=== PATIENT | female | born 1970 | race Caucasian/White ===

== ENCOUNTER → 2017-01-30 | Outpatient (CLI) | payer OTHER ==
--- NOTE | 2017-01-30 21:08 | MR ---
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 TECHNIQUE: Multiplanar, multisequence images of the brain and brainstem were acquired before and aft er administration of 20 mL IV MultiHance. Diffusion weighted imaging is performed. FINDINGS: As compared to 02/05/2014, there is new right frontal craniotomy flap with underlying large 7.4 x 3.6 cm right frontal lobe resection cavity. Resection changes extend down to the frontal horn of the righ t lateral ventricle. There is volume loss with the right lateral ventricle showing minimal asymmetric dilatation. There is surrounding T2 bright white matter change extending within the remaining right frontal lobe, extending across the genu of the corpus callosum to the medial left frontal white matter, the anteri or right subinsular region, and small amount within the anterior superior right temporal lobe. Exten jian to the left, extension posteriorly, and inferiorly into the insular and temporal lobes is new fr om 02/05/2014. These areas do not show enhancement. There is no nodular masslike enhancement along the resection cav ity. Some curvilinear enhancement at the frontal horn of the right lateral ventricle at the margin of the resection cavity, axial postcontrast image 45 and 53 likely represents some displaced choroid pl exus. Dural venous sinuses are patent. Diffusion-weighted imaging shows no suspicious restricted diffusion. Multiple 3 mm of rightward cerebellar tonsillar herniation suggestive of benign cerebellar tonsillar ectopia. Otherwise, midline structures demonstrate normal morphology. No evidence for midline, extra-axial fluid collection, or hydrocephalus. Major intracranial flow voids are intact. Mild mucosal thickening ethmoid air cells. Globes are intact. IMPRESSION: 1. Interval right frontal craniotomy flap with underlying 7.4 cm right frontal lobe resection cavity. There are a couple small curvilinear areas of enhancement along the resection margin adjacent to the frontal horn which likely represent displaced choroid plexus. This enhancement can be reassessed at short interval follow-up. No suspicious nodular or masslike enhancement. 2. Increasing T2 hyperintensity now extending across the corpus callosum to the medial left frontal l obe, farther posteriorly and inferiorly within the remainder of the right frontal lobe, and into the anterior right temporal and insular lobes. Both posttreatment change and infiltrating intermediate gr ludin glioma are in the differential. Correlate with any recent outside priors and as to the utility of MR spectroscopy to further evaluate.
== END | disposition home or self-care (01) ==
LOC: RADMRIMAIN 17:12
PROVIDERS: ATTEND Radiology Radiation Oncology
DX: C71.9 Malignant neoplasm of brain, unspecified (principal)
CPT/HCPCS: 70553; A9577

== ENCOUNTER 2017-05-12 10:19 | Emergency (ER) | payer OTHER ==
[2017-05-12 10:42] VITALS: RESP 17
[2017-05-12] MEDS ORDERED: LORazepam 2 MG/ML SYRINGE IV STA (10:46)
[2017-05-12 11:03] LABS: Basophils # (A) 0.1 k/uL (0-0.2); Basophils % (A) 1 %; CH 31.3; Eosinophils # (A) 0.5 k/uL (0-0.7); Eosinophils % (A) 11 %; HCT 40.3 % (34.0-46.0); HDW 2.81; HGB 13.6 gm/dL (11.4-16.0); Luc # (Auto) 0.13; Luc % (Auto) 3; Lymphocytes # (A) 0.9 k/uL (1.0-4.8); Lymphocytes % (A) 19 %; MCH 31.3 pg (25.0-35.0); MCHC 33.7 g/dL (31.0-37.0); MCV 92.7 fL (80.0-100.0); Mean Platelet Volume 7.3; Monocytes # (A) 0.3 k/uL (0-1.0); Monocytes % (A) 5 %; Neutrophils # (A) 2.8 k/uL (1.3-7.7); Neutrophils % (A) 61 %; RBC 4.35 m/uL (3.80-5.40); RDW 13.4 % (11.5-15.5); WBC 4.5 k/uL (3.8-10.6); WBC (Perox) 4.27
[2017-05-12 11:14] LABS: ALT 42 U/L (9-52); AST 23 U/L (14-36); Alkaline Phosphatase 112 U/L (38-126); Anion Gap 7 mmol/L; Blood Urea Nitrogen 8 mg/dL (7-17); Calcium 8.5 mg/dL (8.4-10.2); Carbon Dioxide 26 mmol/L (22-30); Chloride 106 mmol/L (98-107); Glucose 94 mg/dL (74-99); Non-African American GFR(MDRD) >60 (>60 ml/min/1.73 sqM); Potassium 4.1 mmol/L (3.5-5.1); Sodium 139 mmol/L (137-145); Total Bilirubin 0.3 mg/dL (0.2-1.3); Total Protein 6.3 g/dL (6.3-8.2)
--- NOTE | 2017-05-12 11:30 | CT ---
EXAMINATION TYPE: CT brain wo con DATE OF EXAM: 05/12/2017 COMPARISON: NONE HISTORY: Vertigo, history of brain surgery for CA CT DLP: 2006.[address] of the brain was performed. Right frontal craniotomy with underlying post surgical encephalomalacia. No significant interval jones ge. No evidence for midline shift. Extra-axial dilatation right frontal horn. There is no evidence for intracranial hemorrhage or sulcal effacement. No mass effects are seen. If symptoms persist consider MRI as clinically warranted. IMPRESSION: 1. No acute intracranial process is seen at this time. Stable postoperative changes right frontal re gion.
--- NOTE | 2017-05-12 12:20 | ED ---
General Adult HPI - General Chief complaint: Extremity Problem,Nontraumatic Stated complaint: Hand Swelling Time Seen by Provider: 05/12/17 10:21 Source: patient, EMS, RN notes reviewed, old records reviewed Mode of arrival: EMS Limitations: physical limitation - History of Present Illness Initial comments: Chief complaint history of present illness this is a 47-year-old female with a past history of the brain cancer several years ago in remission. She's had vertigo for long period of time today was worse than days gone by. She is to ready taking meclizine. No associated nausea vomiting and increases with turning her head left and right. She does state that she's been having mild - Related Data Home Medications Medication Instructions Recorded Confirmed HYDROcodone/APAP 7.5-325MG [[place] 1 each PO Q6HR PRN 05/25/14 07/20/16 7.5] Levothyroxine Sodium [Synthroid] 100 mcg PO DAILY 05/25/14 07/20/16 Meclizine [Antivert] 25 mg PO DAILY 05/17/15 07/20/16 Ondansetron [Zofran] 4 mg PO Q8HR PRN 05/17/15 07/20/16 Allergies Allergy/AdvReac Type Severity Reaction Status Date / Time No Known Allergies Allergy Verified 05/25/14 17:47 Review of Systems ROS Statement: Those systems with pertinent positive or pertinent negative responses have been documented in the HPI. Review of systems no headache or visual acuity changes she does get dizzy when she turns her head quickly left the right posterior close her eyes and stay still the dizziness goes away. No chest pain shortness breath GI/ problems. All systems are reviewed. Past medical problems significant for brain cancer with surgery in remission for the past several years. Also history of hypertension and thyroid disorder. Surgeries adenoidectomy, tonsillectomy, and cholecystectomy and craniotomy. The patient's nonsmoker nondrinker ROS Other: All systems not noted in ROS Statement are negative. Past Medical History Past Medical History: Cancer, Hypertension, Neurologic Disorder, Thyroid Disorder Additional Past Medical History / Comment(s): brain cancer History of Any Multi-Drug Resistant Organisms: None Reported Past Surgical History: Adenoidectomy, Section, Cholecystectomy, Tonsillectomy Additional Past Surgical History / Comment(s): brain surgery, d and c Past Psychological History: Anxiety, Depression Smoking Status: Current every day smoker Past Alcohol Use History: None Reported Past Drug Use History: None Reported General Exam - General Exam Comments Initial Comments: General: The patient is awake and alert, in no distress, and does not appear acutely ill. Dizzy with rapid movement of the head left or right. It stops when she stops moving. No nausea no vomiting. Vital signs shows temperature 90.1 pulse 68 respiratory rate 17 pulse ox 99% room air blood pressure 108/50. Eye: Pupils are equal, round and reactive to light, extra-ocular movements are intact ; there is normal conjunctiva bilaterally. No signs of icterus. Ears, nose, mouth and throat: There are moist mucous membranes and no oral lesions. Neck: The neck is supple, there is no tenderness , no carotid bruit. Cardiovascular: There is a regular rate and rhythm. No murmur, rub or gallop is appreciated. Respiratory: Lungs are clear to auscultation, respirations are non-labored, breath sounds are equal. No wheezes, stridor, rales, or rhonchi. Gastrointestinal: Soft, non-distended, non-tender abdomen without masses or organomegaly noted. There is no rebound or guarding present. No CVA tenderness. Bowel sounds are unremarkable. Morbidly obese Back: There is no tenderness to palpation in the midline. There is no obvious deformity. No rashes noted. Musculoskeletal: Patient has been on the son and they are bad sunburn one week ago. Arms are still slightly reddened. But with full range of motion. Neurological: CN II-XII intact, There are no obvious motor or sensory deficits. Coordination appears grossly intact. Speech is normal. No focal or lateralizing findings Skin: Skin rash noted for head and forearms and anterior lower legs from sunburn 7-10 days ago. No signs of infection or cellulitis. Cooperative, appropriate mood & affect, normal judgment. Limitations: physical limitation Course Vital Signs 05/12/17 10:28 Temperature 98.1 F Pulse Rate 68 Respiratory 17 Rate Blood Pressure 108/50 O2 Sat by Pulse 99 Oximetry Medical Decision Making - Medical Decision Making Medical decision making; the patient labs show white count of 4.5 hemoglobin 13 hematocrit of 40, potassium 4.1. UA and 8 creatinine 0.76 GFR greater than 60. Glucose 94. CT of the brain was done and reviewed by radiologist final impression is in no acute intracranial processes seen at this time. Stable post operative changes right frontal region. As read by Dr. kim Patient's feeling better at 1 mg Ativan. Less dizzy with head movement. We discussed her labs. She is not dehydrated. Advised to go home continue with meclizine 3 times daily follow-up with family physician. - Lab Data Result diagrams: 05/12/17 10:54 05/12/17 10:54 Lab Results 05/12/17 05/12/17 Range/Units 10:54 10:54 WBC 4.5 (3.8-10.6) k/uL RBC 4.35 (3.80-5.40) m/uL Hgb 13.6 (11.4-16.0) gm/dL Hct 40.3 (34.0-46.0) % MCV 92.7 (80.0-100.0) fL MCH 31.3 (25.0-35.0) pg MCHC 33.7 (31.0-37.0) g/dL RDW 13.4 (11.5-15.5) % Plt Count 374 (150-450) k/uL Neutrophils % 61 % Lymphocytes % 19 % Monocytes % 5 % Eosinophils % 11 % Basophils % 1 % Neutrophils # 2.8 (1.3-7.7) k/uL Lymphocytes # 0.9 L (1.0-4.8) k/uL Monocytes # 0.3 (0-1.0) k/uL Eosinophils # 0.5 (0-0.7) k/uL Basophils # 0.1 (0-0.2) k/uL Sodium 139 (137-145) mmol/L Potassium 4.1 (3.5-5.1) mmol/L Chloride 106 (98-107) mmol/L Carbon Dioxide 26 (22-30) mmol/L Anion Gap 7 mmol/L BUN 8 (7-17) mg/dL Creatinine 0.76 (0.52-1.04) mg/dL Est GFR (MDRD) Af Amer >60 (>60 ml/min/1.73 sqM) Est GFR (MDRD) Non-Af >60 (>60 ml/min/1.73 sqM) Glucose 94 (74-99) mg/dL Calcium 8.5 (8.4-10.2) mg/dL Total Bilirubin 0.3 (0.2-1.3) mg/dL AST 23 (14-36) U/L ALT 42 (9-52) U/L Alkaline Phosphatase 112 (38-126) U/L Total Protein 6.3 (6.3-8.2) g/dL Albumin 3.4 L (3.5-5.0) g/dL Disposition Clinical Impression: Benign positional vertigo Disposition: HOME SELF-CARE Condition: Fair Instructions: Vertigo (ED) Additional Instructions: Change positions slowly. Continue with meclizine 3 times daily. Follow-up with family physician. Stay out of the sun Referrals: Carlo Kirby DO [Primary Care Provider] - 1-2 days Time of Disposition: 12:22
[2017-05-12 12:22] VITALS: BP 155/81; PULSE 71; TEMP 97.2
== END 2017-05-12 12:41 | disposition home or self-care (01) ==
LOC: EC 10:19
DX: H81.10 Benign paroxysmal vertigo, unspecified ear (principal); M79.89 Other specified soft tissue disorders; E66.01 Morbid (severe) obesity due to excess calories; Z68.44 Body mass index [BMI] 60.0-69.9, adult; E07.9 Disorder of thyroid, unspecified; F17.200 Nicotine dependence, unspecified, uncomplicated; Z79.899 Other long term (current) drug therapy; Z85.841 Personal history of malignant neoplasm of brain
CPT/HCPCS: 36415; 93005; 80053; 85025; 70450; 99284; 96374; J2060

== ENCOUNTER → 2017-05-17 | Outpatient (CLI) | payer OTHER | END | disposition home or self-care (01) | LOC: RADMRIMAIN 17:41 | PROVIDERS: ATTEND Radiology Radiation Oncology | DX: Z53.9 Procedure and treatment not carried out, unspecified reason (principal) ==

== ENCOUNTER → 2017-07-11 | Outpatient (CLI) | payer OTHER ==
--- NOTE | 2017-07-11 15:06 | MR ---
EXAMINATION TYPE: MR brain wo/w con DATE OF EXAM: 07/11/2017 COMPARISON: 01/30/2017 10 HISTORY: maligant neplasm of frontal lobe TECHNIQUE: Multiplanar, multisequence images of the brain and brainstem is performed without and with IV contras t, utilizing 15 mL intravenous Gadavist . FINDINGS: Extensive postsurgical changes are noted with encephalomalacia involving the right frontal lobe. Rese ction cavity are stable measuring approximately 7.4 cm in greatest dimension. Persistent enhancement along the resection margin stable and may represent displacement or or postsurgical. No suspicious no dular or masslike Low-lying cerebellar tonsils are stable. Changes of chronic sinusitis noted Areas of abnormal signal are seen involving the right parietal lobe and left frontal parietal lobe. F indings are stable. There is no enhancing mass. Stable dural enhancement along the right cerebral convexity likely postsu rgical. No nodular component to the dural enhancement. IMPRESSION: 1. Extensive postsurgical change with no evidence of recurrent neoplasm.
== END | disposition home or self-care (01) ==
LOC: RADMRIMAIN 12:13
PROVIDERS: ATTEND Radiology Radiation Oncology
DX: Z08 Encounter for follow-up examination after completed treatment for malignant neoplasm (principal); Z98.890 Other specified postprocedural states; Z85.841 Personal history of malignant neoplasm of brain
CPT/HCPCS: 70553; A9581

== ENCOUNTER 2017-12-18 17:42 | Observation (INO) | payer OTHER ==
--- NOTE | 2017-12-18 18:34 | ED ---
General Adult HPI - General Chief complaint: Shortness of Breath Stated complaint: BIRDIE Time Seen by Provider: 12/18/17 18:18 Source: patient, RN notes reviewed, old records reviewed Mode of arrival: EMS Limitations: no limitations - History of Present Illness Initial comments: 47-year-old female presenting for evaluation of dyspnea and hypoxia. Patient was sent to the emergency department under the urging of her physical therapist who noted oxygen saturation I 80s. Patient states she has had some cough. She denies chest pain. She does complain of bilateral foot pain and swelling. She has no known history of COPD or asthma. No history of heart failure. Patient has been receiving physical therapy secondary to debilitating. She has remote history of brain cancer which according to the patient is in remission. She denies any fever. Denies any abdominal pain or vomiting. Patient comes with a letter from her physical therapist urging that the patient receive additional rehab. - Related Data Home Medications Medication Instructions Recorded Confirmed Meclizine [Antivert] 25 mg PO Q8H PRN 05/17/15 12/18/17 Desvenlafaxine Succinate [Pristiq 50 mg PO DAILY 05/12/17 12/18/17 ER] Ergocalciferol (Vitamin D2) 50,000 unit PO Q7D 05/12/17 12/18/17 [Vitamin D2] HYDROcodone/APAP 10-325MG [[place] 1 tab PO Q8H PRN 05/12/17 12/18/17 10-325] Levothyroxine Sodium [Synthroid] 112 mcg PO DAILY 05/12/17 12/18/17 Nortriptyline [Pamelor] 50 mg PO HS 05/12/17 12/18/17 Pantoprazole [Protonix] 40 mg PO DAILY 05/12/17 12/18/17 Pravastatin Sodium [Pravachol] 20 mg PO DAILY 05/12/17 12/18/17 Topiramate [Topamax] 50 mg PO BID 05/12/17 12/18/17 ALPRAZolam [Xanax] 0.5 mg PO DAILY PRN 12/18/17 12/18/17 Mirabegron [Myrbetriq] 50 mg PO DAILY 12/18/17 12/18/17 Allergies Allergy/AdvReac Type Severity Reaction Status Date / Time No Known Allergies Allergy Verified 12/18/17 18:25 Review of Systems ROS Statement: Those systems with pertinent positive or pertinent negative responses have been documented in the HPI. ROS Other: All systems not noted in ROS Statement are negative. Past Medical History Past Medical History: Cancer, Hypertension, Neurologic Disorder, Thyroid Disorder Additional Past Medical History / Comment(s): brain cancer History of Any Multi-Drug Resistant Organisms: None Reported Past Surgical History: Adenoidectomy, Section, Cholecystectomy, Tonsillectomy Additional Past Surgical History / Comment(s): brain surgery, d and c Past Psychological History: Anxiety, Depression Smoking Status: Current every day smoker Past Alcohol Use History: None Reported Past Drug Use History: None Reported General Exam Limitations: no limitations General appearance: alert, in no apparent distress, obese Head exam: Present: atraumatic, normocephalic Eye exam: Present: normal appearance, PERRL ENT exam: Present: normal exam Neck exam: Present: normal inspection. Absent: tenderness, meningismus Respiratory exam: Present: decreased breath sounds. Absent: wheezes, rales, rhonchi Cardiovascular Exam: Present: regular rate, normal rhythm GI/Abdominal exam: Present: soft. Absent: distended, tenderness Extremities exam: Present: normal capillary refill, pedal edema, other (Erythema , with good cap refill in the bilateral feet. No induration or fluctuance). Absent: calf tenderness Neurological exam: Present: alert, oriented X3 Psychiatric exam: Present: normal affect, normal mood Skin exam: Present: warm, dry, intact. Absent: cyanosis, diaphoretic Course Vital Signs 12/18/17 12/18/17 17:53 19:55 Temperature 98.7 F Pulse Rate 90 89 Respiratory 20 20 Rate Blood Pressure 130/74 136/69 O2 Sat by Pulse 99 95 Oximetry EKG Findings - EKG Comments: EKG Findings:: EKG shows normal sinus rhythm, low voltage QRS, ventricular rate 80,. 142, QRS duration 102, QTc 412, no signs of ischemia Medical Decision Making - Medical Decision Making 39 H old female presenting with hypoxia and mild cough. No history of asthma, patient is a current smoker. Hypoxia likely multifactorial, reactive airway secondary to tobacco use, and obesity. Chest x-ray shows no focal pneumonia. EKG nonischemic. D-dimer and troponin negative. Influenza negative. White blood cell count normal 8.4, hemoglobin 12.6. Patient was also sent in by her physical therapist or primary care physician for evaluation of hypoxia and debility. - Lab Data Result diagrams: 12/18/17 19:00 12/18/17 19:00 Lab Results 12/18/17 12/18/17 12/18/17 Range/Units 19:00 19:00 19:00 WBC 8.4 (3.8-10.6) k/uL RBC 4.30 (3.80-5.40) m/uL Hgb 12.6 (11.4-16.0) gm/dL Hct 37.8 (34.0-46.0) % MCV 88.0 (80.0-100.0) fL MCH 29.3 (25.0-35.0) pg MCHC 33.2 (31.0-37.0) g/dL RDW 14.7 (11.5-15.5) % Plt Count 402 (150-450) k/uL Neutrophils % 74 % Lymphocytes % 19 % Monocytes % 4 % Eosinophils % 2 % Basophils % 0 % Neutrophils # 6.2 (1.3-7.7) k/uL Lymphocytes # 1.6 (1.0-4.8) k/uL Monocytes # 0.4 (0-1.0) k/uL Eosinophils # 0.2 (0-0.7) k/uL Basophils # 0.0 (0-0.2) k/uL PT (9.0-12.0) sec INR (<1.2) APTT (22.0-30.0) sec D-Dimer (<0.60) mg/L FEU Sodium 139 (137-145) mmol/L Potassium 4.1 (3.5-5.1) mmol/L Chloride 104 (98-107) mmol/L Carbon Dioxide 24 (22-30) mmol/L Anion Gap 11 mmol/L BUN 11 (7-17) mg/dL Creatinine 0.76 (0.52-1.04) mg/dL Est GFR (MDRD) Af Amer >60 (>60 ml/min/1.73 sqM) Est GFR (MDRD) Non-Af >60 (>60 ml/min/1.73 sqM) Glucose 126 H (74-99) mg/dL Calcium 9.0 (8.4-10.2) mg/dL Magnesium 1.9 (1.6-2.3) mg/dL Total Bilirubin 0.2 (0.2-1.3) mg/dL AST 23 (14-36) U/L ALT 43 (9-52) U/L Alkaline Phosphatase 158 H (38-126) U/L Total Creatine Kinase 166 H (30-135) U/L CK-MB (CK-2) 2.7 H* (0.0-2.4) ng/mL CK-MB (CK-2) Rel Index 1.6 Troponin I <0.012 (0.000-0.034) ng/mL NT-Pro-B Natriuret Pep pg/mL Total Protein 6.8 (6.3-8.2) g/dL Albumin 3.4 L (3.5-5.0) g/dL Influenza Type A RNA (Not Detectd) Influenza Type B (PCR) (Not Detectd) 12/18/17 12/18/17 12/18/17 Range/Units 19:00 19:00 19:00 WBC (3.8-10.6) k/uL RBC (3.80-5.40) m/uL Hgb (11.4-16.0) gm/dL Hct (34.0-46.0) % MCV (80.0-100.0) fL MCH (25.0-35.0) pg MCHC (31.0-37.0) g/dL RDW (11.5-15.5) % Plt Count (150-450) k/uL Neutrophils % % Lymphocytes % % Monocytes % % Eosinophils % % Basophils % % Neutrophils # (1.3-7.7) k/uL Lymphocytes # (1.0-4.8) k/uL Monocytes # (0-1.0) k/uL Eosinophils # (0-0.7) k/uL Basophils # (0-0.2) k/uL PT 9.5 (9.0-12.0) sec INR 1.0 (<1.2) APTT 24.5 (22.0-30.0) sec D-Dimer 0.51 (<0.60) mg/L FEU Sodium (137-145) mmol/L Potassium (3.5-5.1) mmol/L Chloride (98-107) mmol/L Carbon Dioxide (22-30) mmol/L Anion Gap mmol/L BUN (7-17) mg/dL Creatinine (0.52-1.04) mg/dL Est GFR (MDRD) Af Amer (>60 ml/min/1.73 sqM) Est GFR (MDRD) Non-Af (>60 ml/min/1.73 sqM) Glucose (74-99) mg/dL Calcium (8.4-10.2) mg/dL Magnesium (1.6-2.3) mg/dL Total Bilirubin (0.2-1.3) mg/dL AST (14-36) U/L ALT (9-52) U/L Alkaline Phosphatase (38-126) U/L Total Creatine Kinase (30-135) U/L CK-MB (CK-2) (0.0-2.4) ng/mL CK-MB (CK-2) Rel Index Troponin I (0.000-0.034) ng/mL NT-Pro-B Natriuret Pep 43 pg/mL Total Protein (6.3-8.2) g/dL Albumin (3.5-5.0) g/dL Influenza Type A RNA Not Detected (Not Detectd) Influenza Type B (PCR) Not Detected (Not Detectd) Disposition Clinical Impression: Hypoventilation associated with obesity, Reactive airway disease, Hypoxia Disposition: ADMITTED IP TO THIS [facility] Condition: Stable Referrals: Carlo Kirby DO [Primary Care Provider] - 1-2 days Decision to Admit Reason: Admit from [facility] Decision Date: 12/18/17 Decision Time: 20:46
[2017-12-18 19:19] LABS: Basophils % (A) 0 %; Eosinophils # (A) 0.2 k/uL (0-0.7); Eosinophils % (A) 2 %; HCT 37.8 % (34.0-46.0); HGB 12.6 gm/dL (11.4-16.0); Lymphocytes # (A) 1.6 k/uL (1.0-4.8); Lymphocytes % (A) 19 %; MCH 29.3 pg (25.0-35.0); MCHC 33.2 g/dL (31.0-37.0); Mean Platelet Volume 6.9; Monocytes # (A) 0.4 k/uL (0-1.0); Monocytes % (A) 4 %; Neutrophils # (A) 6.2 k/uL (1.3-7.7); Neutrophils % (A) 74 %; Platelet Count 402 k/uL (150-450); RDW 14.7 % (11.5-15.5); WBC 8.4 k/uL (3.8-10.6)
[2017-12-18 19:42] LABS: ALT 43 U/L (9-52); AST 23 U/L (14-36); Albumin 3.4 g/dL (3.5-5.0); Alkaline Phosphatase 158 U/L (38-126); Anion Gap 11 mmol/L; Blood Urea Nitrogen 11 mg/dL (7-17); Carbon Dioxide 24 mmol/L (22-30); Chloride 104 mmol/L (98-107); Glucose 126 mg/dL (74-99); Potassium 4.1 mmol/L (3.5-5.1); Sodium 139 mmol/L (137-145); Total Bilirubin 0.2 mg/dL (0.2-1.3); Total Protein 6.8 g/dL (6.3-8.2)
[2017-12-18 19:43] LABS: D-Dimer 0.51 mg/L FEU (<0.60); Partial Thromboplastin Time 24.5 sec (22.0-30.0); Prothrombin Time 9.5 sec (9.0-12.0)
[2017-12-18 19:44] LABS: Creatine Kinase 166 U/L (30-135)
--- NOTE | 2017-12-18 19:46 | XR ---
EXAMINATION TYPE: XR chest 2V DATE OF EXAM: 12/18/2017 COMPARISON: 09/13/2013 HISTORY: Short of breath TECHNIQUE: Frontal and lateral views of the chest are obtained. FINDINGS: There is no heart failure nor confluent pneumonic infiltrate. Costophrenic angles are anival r. There are chest leads. Bony thorax appears intact. IMPRESSION: No active cardiopulmonary disease. No change.
[2017-12-18 19:56] LABS: Troponin I <0.012 ng/mL (0.000-0.034)
[2017-12-18 19:59] LABS: Creatine Kinase MB 2.7 ng/mL (0.0-2.4)
[2017-12-18] MEDS ORDERED: IPRATROPIUM-ALBUTEROL 3 ML NEB INHALATION PRN (20:46)
[2017-12-18] MEDS ORDERED: MECLIZINE 25 MG TAB PO PRN (20:48)
[2017-12-18] MEDS: TOPIRAMATE 25 MG TAB PO SCH (21:40)
[2017-12-18] MEDS: ALPRAZolam 0.5 MG TAB PO PRN (21:40)
[2017-12-18] MEDS: NORTRIPTYLINE 25 MG CAP PO SCH (21:40)
[2017-12-18] MEDS: HYDROcodone/APAP 10-325MG 1 EACH TAB PO PRN (21:40)
[2017-12-19] MEDS: PANTOPRAZOLE 40 MG TABLET PO SCH (07:35)
[2017-12-19] MEDS: LEVOTHYROXINE 112 MCG TAB PO SCH (07:35)
[2017-12-19] MEDS: TOPIRAMATE 25 MG TAB PO SCH ×2 (08:21→20:35)
[2017-12-19] MEDS: PRAVASTATIN SODIUM 20 MG TAB PO SCH (08:21)
[2017-12-19] MEDS: IPRATROPIUM-ALBUTEROL 3 ML NEB INHALATION SCH ×5 (08:58→19:29)
[2017-12-19] MEDS ORDERED: predniSONE 20 MG TAB PO SCH (09:00)
[2017-12-19] MEDS: HYDROcodone/APAP 10-325MG 1 EACH TAB PO PRN ×2 (13:16→20:34)
[2017-12-19] MEDS: ENOXAPARIN 40 MG/0.4 ML SYRINGE SQ SCH (18:15)
--- NOTE | 2017-12-19 19:25 | HP ---
HISTORY AND PHYSICAL DATE OF ADMISSION: 12/18/2017 PRESENTING COMPLAINT: Short of breath. HISTORY OF PRESENTING COMPLAINT: This is a 47-year-old patient of Dr. Kirby. Chronic stable medical conditions include hypertension, hypothyroid, anxiety, depression, hyperlipidemia. The patient is a long-standing smoker. Patient presented with worsening short of breath, wheezing, cough, no sputum, tired-appearing. The patient is long-standing smoker. Coughing. She also gets a bit dizzy. Appetite is fair. Denies any fevers. The patient does snore quite a bit. The patient is morbidly obese. REVIEW OF SYSTEMS: CONSTITUTIONAL: Tired. HEENT: None. RESPIRATORY: As above. CARDIOVASCULAR: None. GASTROINTESTINAL: None. GENITOURINARY: None. MUSCULOSKELETAL: Some discomfort in the joints. DERMATOLOGICAL: Fungal changes in the folds. LYMPHATICS: None. PSYCHIATRY: None. NEUROLOGICAL: None. PAST MEDICAL HISTORY: Hypertension, hypothyroid, brain tumor, had a surgery; anxiety, depression, hyperlipidemia. PAST SURGICAL HISTORY: Adenoidectomy, , cholecystectomy, tonsillectomy, brain surgery, D and C. SOCIAL HISTORY: Smokes about a pack a day for 30 years. Denies alcohol. Lives by herself. FAMILY HISTORY: Reviewed, noncontributory to presentation. HOME MEDICATIONS: 1. Topamax 50 mg b.i.d. 2. Pravachol 20 mg a day. 3. Protonix 40 mg a day. 4. Pamelor 50 mg q.h.s. 5. Myrbetriq 50 mg p.o. daily. 6. Antivert 25 p.o. q.8h p.r.n. 7. Synthroid 112 mcg p.o. daily. 8. [place] 10, 1 tablet q.8h p.r.n. 9. Vitamin D2 50,000 units every 7 days. 10.Pristiq ER 50 mg p.o. daily. 11.Xanax 0.5 p.o. daily p.r.n. ALLERGIES: None. EXAMINATION: VITAL SIGNS: On presentation, temperature 98.7, pulse 90, respirations 20, blood pressure 130/74 pulse ox 99% on room air. GENERAL APPEARANCE: Morbidly obese, BMI 68.4. When I walked in, patient actually was snoring quite loudly. EYES: Pupils equal. Conjunctivae normal. HEENT: External nose and ears normal. Oral cavity normal. NECK: Short thick. JVD unable to assess. Mass not palpable. RESPIRATORY: Effort increased. LUNGS: Diminished breath sounds, prolonged expiration. CARDIOVASCULAR: First and second sounds normal. No edema. ABDOMEN: Distended, soft. Liver and spleen not palpable. LYMPHATIC: No lymph node palpable in neck or axillae. PSYCHIATRY: Alert and oriented x3. Mood and affect slightly anxious-appearing. NEUROLOGICAL: Pupils equal. Cranial nerves grossly intact. Power and sensation grossly intact. DERMATOLOGICAL: Skin folds have reddened area. INVESTIGATIONS: White count is 8.4, hemoglobin 12.6. Potassium 4.1, BUN and creatinine are normal. Influenza A and B negative. Chest x-ray: No active cardiopulmonary disease reported. EKG: Normal sinus rhythm. ASSESSMENT: 1. Acute chronic obstructive pulmonary disease exacerbation in a current smoker. 2. Chronic nicotine dependence. Patient active cigarette smoker. 3. Morbidly obese, BMI 68.4. Suspect underlying obesity hypoventilation syndrome. The patient will need to have obstructive sleep apnea workup as an outpatient. 4. Essential hypertension. 5. Hypothyroidism. 6. History of brain cancer with surgical resection. 7. Anxiety, depression, not otherwise specified. 8. Hyperlipidemia. 9. Hypothyroidism. 10.Chronic urinary stress incontinence. 11.Hyperlipidemia. 12.Candidiasis in the skin folds. PLAN: Home medications are resumed. Patient is put on nebulized bronchodilators every 4 hours, IV steroids, inhaled steroids. The patient advised against smoking. Accu-Cheks will be followed. Other home medications are resumed. Also, a statin fungal powder will be given. Care was discussed at length with the patient. Smoking cessation counseling was done with the patient, including effect on the COPD. The patient will be given a nicotine patch. More than 3 minutes was spent for this. MMODL / IJN: [id number] /
[2017-12-19] MEDS: BUDESONIDE 1 MG/2 ML NEBU INHALATION SCH ×2 (19:29)
[2017-12-19] MEDS: NICOTINE 21MG/24HR PATCH TRANSDERM SCH (19:45)
[2017-12-19] MEDS: methylPREDNISolone SOD SUCCI 40 MG/ML 1 ML VIAL IV SCH ×2 (19:45→23:29)
[2017-12-19] MEDS: ALPRAZolam 0.5 MG TAB PO PRN (20:34)
[2017-12-19] MEDS: NORTRIPTYLINE 25 MG CAP PO SCH (20:34)
[2017-12-19] MEDS: NYSTATIN 100,000 UNIT/GM POWD 15 GM TOPICAL SCH (20:35)
[2017-12-19 21:37] LABS: Glucose,Whole Blood 158 mg/dL (75-99)
[2017-12-20] MEDS: LEVOTHYROXINE 112 MCG TAB PO SCH (05:33)
[2017-12-20] MEDS: HYDROcodone/APAP 10-325MG 1 EACH TAB PO PRN ×2 (05:36→13:44)
[2017-12-20 06:56] LABS: Glucose,Whole Blood 139 mg/dL (75-99)
[2017-12-20 07:52] VITALS: BP 118/63; RESP 16; TEMP 97.7
[2017-12-20] MEDS: INSULIN ASPART 100 UNIT/ML 1 ML 10 ML VIAL SQ SCH ×2 (08:45→12:37)
[2017-12-20] MEDS: NICOTINE 21MG/24HR PATCH TRANSDERM SCH (08:56)
[2017-12-20] MEDS: NYSTATIN 100,000 UNIT/GM POWD 15 GM TOPICAL SCH (08:57)
[2017-12-20] MEDS: ENOXAPARIN 40 MG/0.4 ML SYRINGE SQ SCH (08:57)
[2017-12-20] MEDS: PANTOPRAZOLE 40 MG TABLET PO SCH (08:57)
[2017-12-20] MEDS: methylPREDNISolone SOD SUCCI 40 MG/ML 1 ML VIAL IV SCH (08:57)
[2017-12-20] MEDS: PRAVASTATIN SODIUM 20 MG TAB PO SCH (08:58)
[2017-12-20] MEDS: TOPIRAMATE 25 MG TAB PO SCH (08:58)
[2017-12-20] MEDS: BUDESONIDE 1 MG/2 ML NEBU INHALATION SCH (09:04)
[2017-12-20] MEDS: IPRATROPIUM-ALBUTEROL 3 ML NEB INHALATION SCH ×2 (09:04→12:10)
[2017-12-20 11:01] VITALS: BMI 68.3
[2017-12-20 11:48] LABS: Glucose,Whole Blood 142 mg/dL (75-99)
[2017-12-20 12:13] VITALS: PULSE 95
--- NOTE | 2017-12-23 00:07 | DS ---
DISCHARGE SUMMARY DATE OF ADMISSION: 12/18/2017. DATE OF DISCHARGE: 12/20/2017. FINAL DIAGNOSES: 1. Acute chronic obstructive pulmonary disease exacerbation in a current smoker. 2. Chronic nicotine dependence, patient is an active cigarette smoker. 3. Morbid obesity, body mass index 68.4. 4. Suspect obesity hypoventilation syndrome. 5. Essential hypertension. 6. Hypothyroidism. 7. History of brain cancer with surgical resection. 8. Anxiety, depression, not otherwise specified. 9. Hyperlipidemia. 10.Hypothyroidism. 11.Chronic urinary stress incontinence. 12.Intertriginous candidiasis of the skin folds. HOSPITAL COURSE: This pleasant lady who is morbidly obese, BMI 68.4, continues to smoke. Presented short of breath and with cough. Found to have COPD exacerbation. Responded very well to nebulized bronchodilators, steroids. I did consumer credit counselor her against smoking. The patient does snore quite a bit. I did talk to her about getting outpatient sleep study done through her family doctor, also to follow up with weight loss measures. Doing better at the time of discharge. EXAMINATION: Lungs improved air entry, less wheezing. Psych AO x3. On exam of the lungs, slightly improved air entry, minimal wheezing. DISCHARGE MEDICATIONS: 1. Pristiq ER 50 mg p.o. daily. 2. Vitamin D2, 1000 units p.o. every 7 days. 3. [place] 10 1 tab every 8 hours p.r.n. 4. Synthroid 112 mcg p.o. daily. 5. Pamelor 50 micro mg p.o. at bedtime. 6. Protonix 40 mg p.o. daily. 7. Pravachol 20 mg p.o. daily. 8. Topamax 50 mg p.o. b.i.d. 9. Xanax 0.5 mg p.o. daily. 10.Myrbetriq 50 mg p.o. daily. 11.DuoNeb t.i.d. 12.Nicotine 21 mg patch. 13.Nystatin topical powder b.i.d. FOLLOWUP: 1. Follow up with Dr. Kirby on 12/23/2017. 2. [facility] is following the patient. 3. The patient was told to discuss with the family doctor next visit about obstructive sleep apnea and further weight loss measures. Discussion and discharge planning more than 35 minutes. MMODL / IJN: [id number] /
== END 2017-12-20 16:20 | disposition home health service (06) ==
LOC: EC 17:42 → 3SUR 20:46
PROVIDERS: ADMIT Hospitalist; ATTEND Hospitalist
DX: J44.1 Chronic obstructive pulmonary disease with (acute) exacerbation (principal); F17.210 Nicotine dependence, cigarettes, uncomplicated; Z68.44 Body mass index [BMI] 60.0-69.9, adult; E66.2 Morbid (severe) obesity with alveolar hypoventilation; I10 Essential (primary) hypertension; E03.9 Hypothyroidism, unspecified; Z85.841 Personal history of malignant neoplasm of brain; F41.9 Anxiety disorder, unspecified; F32.9 Major depressive disorder, single episode, unspecified; E78.5 Hyperlipidemia, unspecified; N39.3 Stress incontinence (female) (male); B37.2 Candidiasis of skin and nail; Z79.899 Other long term (current) drug therapy; R09.02 Hypoxemia; M79.671 Pain in right foot; M79.672 Pain in left foot; R06.83 Snoring
CPT/HCPCS: 99285; 96376 ×2; 96372 ×2; 96374; 36415; 94640 ×4; 93005; 97116; 97162; 85379; 83880; 80053; 82550; 82553; 83735; 84484; 85025; 85610; 85730; 87502; 71046; G0378 ×3; S4990 ×2; J2920 ×2; J1650 ×2; J7512

== ENCOUNTER 2018-05-25 20:50 | Emergency (ER) | payer OTHER ==
[2018-05-25 20:54] VITALS: TEMP 98
--- NOTE | 2018-05-25 21:41 | ED ---
Chest Pain HPI - General Chief Complaint: Chest Pain Stated Complaint: CHEST PAIN Time Seen by Provider: 05/25/18 20:59 Source: EMS Mode of arrival: EMS Limitations: no limitations - History of Present Illness Initial Comments: This patient is a 48-year-old woman with history of COPD who presents with complaint that it feels like her chest is tight. She states that this been going on since she had an argument with her sister yesterday. Patient is not sure if it is her COPD flaring up for some component of anxiety. She states she also has been having some generalized fatigue. She states that she had wanted shower today but felt like she couldn't stand up long enough for that. The patient has not noted a fever or chills. She has not had a change in her cough. No purulent sputum. She denies any leg pain or swelling. She is not noting any dark tarry stools. MD Complaint: chest pain Onset/Timin -: days(s) Onset: other (After an argument) Pain Location: left chest, right chest Pain Radiation: none Quality: tightness Consistency: constant Improves With: nothing Worsens With: nothing Treatments Prior to Arrival: none - Related Data Home Medications Medication Instructions Recorded Confirmed Desvenlafaxine Succinate [Pristiq 50 mg PO DAILY 05/12/17 12/18/17 ER] Ergocalciferol (Vitamin D2) 50,000 unit PO Q7D 05/12/17 12/18/17 [Vitamin D2] HYDROcodone/APAP 10-325MG [[place] 1 tab PO Q8H PRN 05/12/17 12/18/17 10-325] Levothyroxine Sodium [Synthroid] 112 mcg PO DAILY 05/12/17 12/18/17 Nortriptyline [Pamelor] 50 mg PO HS 05/12/17 12/18/17 Pantoprazole [Protonix] 40 mg PO DAILY 05/12/17 12/18/17 Pravastatin Sodium [Pravachol] 20 mg PO DAILY 05/12/17 12/18/17 Topiramate [Topamax] 50 mg PO BID 05/12/17 12/18/17 ALPRAZolam [Xanax] 0.5 mg PO DAILY PRN 12/18/17 12/18/17 Mirabegron [Myrbetriq] 50 mg PO DAILY 12/18/17 12/18/17 Previous Rx's Medication Instructions Recorded Ipratropium-Albuterol Nebulize 3 ml INHALATION TID #90 ampul.neb 12/20/17 [Duoneb 0.5 mg-3 mg/3 ml Soln] Nicotine 21Mg/24Hr Patch [Habitrol] 1 patch TRANSDERM DAILY #30 patch 12/20/17 Nystatin 100,000 Unit/gm Powd 1 applic TOPICAL BID applic 12/20/17 [Mycostatin Powder] Azithromycin [Zithromax Z-pack] 250 mg PO DIRECTED #6 tab 05/25/18 Allergies Allergy/AdvReac Type Severity Reaction Status Date / Time No Known Allergies Allergy Verified 05/25/18 20:54 Review of Systems ROS Statement: Those systems with pertinent positive or pertinent negative responses have been documented in the HPI. ROS Other: All systems not noted in ROS Statement are negative. Constitutional: Denies: fever, chills Respiratory: Reports: as per HPI, dyspnea. Denies: cough, wheezes, hemoptysis Cardiovascular: Reports: as per HPI, chest pain. Denies: palpitations, orthopnea, edema, syncope Gastrointestinal: Denies: abdominal pain, vomiting, diarrhea, constipation Genitourinary: Denies: dysuria, hematuria Musculoskeletal: Denies: back pain Skin: Denies: rash Neurological: Denies: headache, weakness, numbness Past Medical History Past Medical History: Cancer, Hypertension, Neurologic Disorder, Thyroid Disorder Additional Past Medical History / Comment(s): brain cancer History of Any Multi-Drug Resistant Organisms: None Reported Past Surgical History: Adenoidectomy, Section, Cholecystectomy, Tonsillectomy Additional Past Surgical History / Comment(s): brain surgery, d and c Past Anesthesia/Blood Transfusion Reactions: No Reported Reaction Past Psychological History: Anxiety, Depression Smoking Status: Current every day smoker Past Alcohol Use History: None Reported Past Drug Use History: None Reported General Exam Limitations: no limitations General appearance: alert, in no apparent distress, obese Head exam: Present: atraumatic, normocephalic Eye exam: Present: normal appearance. Absent: scleral icterus, conjunctival injection ENT exam: Present: normal oropharynx Neck exam: Present: normal inspection Respiratory exam: Present: wheezes (There is a mild expiratory wheeze). Absent : respiratory distress, rales, rhonchi, stridor, chest wall tenderness, accessory muscle use, decreased breath sounds Cardiovascular Exam: Present: regular rate, normal rhythm, normal heart sounds. Absent: systolic murmur, diastolic murmur, rubs, gallop GI/Abdominal exam: Present: soft. Absent: distended, tenderness, guarding, rebound, mass Extremities exam: Present: normal inspection, normal capillary refill. Absent: pedal edema, calf tenderness Back exam: Present: normal inspection. Absent: CVA tenderness (R), CVA tenderness (L) Neurological exam: Present: alert, normal gait Skin exam: Present: warm, dry, intact, normal color. Absent: rash Course Vital Signs 05/25/18 05/25/18 20:51 21:56 Temperature 98.0 F Pulse Rate 51 L 51 L Respiratory 20 16 Rate Blood Pressure 125/74 128/58 O2 Sat by Pulse 97 95 Oximetry Disposition Clinical Impression: COPD (chronic obstructive pulmonary disease) Disposition: HOME SELF-CARE Condition: Good Instructions: COPD (Chronic Obstructive Pulmonary Disease) (ED) Prescriptions: Azithromycin [Zithromax Z-pack] 250 mg PO DIRECTED #6 tab Is patient prescribed a controlled substance at d/c from ED?: No Referrals: Carlo Kirby DO [Primary Care Provider] - 1-2 days
[2018-05-25 21:56] VITALS: RESP 16
[2018-05-25 21:58] LABS: Basophils % (A) 1 %; Eosinophils # (A) 0.1 k/uL (0-0.7); Eosinophils % (A) 1 %; HCT 45.1 % (34.0-46.0); HGB 14.2 gm/dL (11.4-16.0); Lymphocytes # (A) 1.7 k/uL (1.0-4.8); Lymphocytes % (A) 30 %; MCH 27.1 pg (25.0-35.0); MCHC 31.6 g/dL (31.0-37.0); MCV 85.9 fL (80.0-100.0); Mean Platelet Volume 7.3; Monocytes # (A) 0.2 k/uL (0-1.0); Monocytes % (A) 4 %; Neutrophils # (A) 3.4 k/uL (1.3-7.7); Neutrophils % (A) 62 %; Platelet Count 326 k/uL (150-450); RBC 5.25 m/uL (3.80-5.40); RDW 14.9 % (11.5-15.5); WBC 5.4 k/uL (3.8-10.6)
--- NOTE | 2018-05-25 22:05 | XR ---
EXAMINATION TYPE: XR chest 2V DATE OF EXAM: 05/25/2018 COMPARISON: 12/18/2017 HISTORY: 48-year-old female with chest pain TECHNIQUE: PA and lateral views FINDINGS: The heart is borderline enlarged. Aorta within normal limits. Diffuse interstitial prominence. Some p atchy peripheral left basilar density. No pleural effusion. IMPRESSION: Chronic appearing changes and borderline heart size. There is some patchy left basilar density that c ould represent atelectasis or early infiltrate.
[2018-05-25 22:13] LABS: ALT 33 U/L (9-52); AST 20 U/L (14-36); Albumin 3.4 g/dL (3.5-5.0); Alkaline Phosphatase 106 U/L (38-126); Amylase <30 U/L (30-110); Anion Gap 5 mmol/L; Blood Urea Nitrogen 10 mg/dL (7-17); Calcium 8.7 mg/dL (8.4-10.2); Carbon Dioxide 24 mmol/L (22-30); Chloride 111 mmol/L (98-107); Glucose 86 mg/dL (74-99); Lipase 30 U/L (23-300); Potassium 3.8 mmol/L (3.5-5.1); Sodium 140 mmol/L (137-145); Total Bilirubin 0.3 mg/dL (0.2-1.3); Total Protein 6.1 g/dL (6.3-8.2)
[2018-05-25 22:15] LABS: Creatine Kinase 45 U/L (30-135)
[2018-05-25 22:16] LABS: D-Dimer 0.32 mg/L FEU (<0.60); Partial Thromboplastin Time 24.9 sec (22.0-30.0); Prothrombin Time 10.1 sec (9.0-12.0)
[2018-05-25 22:28] LABS: Creatine Kinase MB 0.6 ng/mL (0.0-2.4); Troponin I <0.012 ng/mL (0.000-0.034)
[2018-05-25] MEDS ORDERED: ALBUTEROL NEBULIZED 2.5 MG/3 ML INHALATION STA (22:39)
[2018-05-25] MEDS ORDERED: HYDROcodone/APAP 5-325MG 1 EACH TAB PO STA (22:39)
[2018-05-25] MEDS ORDERED: AZITHROMYCIN 500 MG TAB PO STA (22:39)
[2018-05-25 22:56] VITALS: BP 113/64
[2018-05-25 23:05] VITALS: PULSE 49
== END 2018-05-25 23:19 | disposition home or self-care (01) ==
LOC: EC 20:50
DX: J44.9 Chronic obstructive pulmonary disease, unspecified (principal); I10 Essential (primary) hypertension; E07.9 Disorder of thyroid, unspecified; F32.9 Major depressive disorder, single episode, unspecified; F41.9 Anxiety disorder, unspecified; F17.200 Nicotine dependence, unspecified, uncomplicated; Z85.841 Personal history of malignant neoplasm of brain; Z79.899 Other long term (current) drug therapy
CPT/HCPCS: 36415; 71046; 80053; 82150; 82550; 82553; 83690; 83735; 84484; 85025; 85379; 85610; 85730; 94640; 99285

== ENCOUNTER 2018-07-23 21:58 | Emergency (ER) | payer OTHER ==
[2018-07-23] MEDS ORDERED: KETOROLAC 30 MG/ML 1 ML VIAL IVP STA (22:26)
[2018-07-23] MEDS ORDERED: METOCLOPRAMIDE 5 MG/ML 2 ML VIAL IVP STA (22:26)
[2018-07-23] MEDS ORDERED: diphenhydrAMINE 50 MG/ML 1 ML VIAL IVP STA (22:26)
[2018-07-23] MEDS ORDERED: SODIUM CHLORIDE 0.9% 1,000 ML IV ONE (22:26)
--- NOTE | 2018-07-23 22:31 | ED ---
Headache HPI - General Chief Complaint: Headache Stated Complaint: Head pressure Time Seen by Provider: 07/23/18 22:16 Mode of arrival: EMS Limitations: no limitations - History of Present Illness Initial Comments: 48-year-old female patient with past medical history significant for hypertension, hypothyroid, and brain cancer s/p resection in 2017 presents to the emergency department today for complaints of headache, dizziness, and weakness. Patient states that she has had this headache for the last 5 days. States that it feels like an intense pressure in her frontal region and behind her right eye. Patient states that it has been a while since she's had a headache similar to this. Patient states she has also been feeling weak and more dizzy than usual. Patient denies any nausea, vomiting, blurred vision, double vision, numbness, or tingling to her extremities. She denies any difficulty with speech but states that she has been having problems with her memory. She denies any chest pain or shortness of breath. Patient is also reporting a rash to her left leg. States it has been present for the last three days. States the area is itchy. She denies any drainage from the site. Denies history of similar lesion. Patient denies any recent fever, chills, abdominal pain, nausea, vomiting, diarrhea, constipation, back pain, hematuria, dysuria, urinary urgency, urinary frequency, or any other complaints. - Related Data Home Medications Medication Instructions Recorded Confirmed Desvenlafaxine Succinate [Pristiq 50 mg PO DAILY 05/12/17 07/23/18 ER] Ergocalciferol (Vitamin D2) 50,000 unit PO Q7D 05/12/17 07/23/18 [Vitamin D2] HYDROcodone/APAP 10-325MG [[place] 1 tab PO Q8H PRN 05/12/17 07/23/18 10-325] Pantoprazole [Protonix] 40 mg PO DAILY 05/12/17 07/23/18 Pravastatin Sodium [Pravachol] 20 mg PO DAILY 05/12/17 07/23/18 Topiramate [Topamax] 50 mg PO BID 05/12/17 07/23/18 Oxybutynin ER [Ditropan Xl] 15 mg PO DAILY 07/10/18 07/23/18 traZODone HCL 50 mg PO HS 07/10/18 07/23/18 Levothyroxine Sodium 125 mcg PO DAILY 07/23/18 07/23/18 Loperamide HCl [Loperamide] 2 mg PO DAILY PRN 07/23/18 07/23/18 Magnesium Oxide [Mag-Ox] 250 mg PO BID 07/23/18 07/23/18 Previous Rx's Medication Instructions Recorded Nystatin 100,000 Unit/gm Powd 1 applic TOPICAL BID applic 12/20/17 [Mycostatin Powder] Allergies Allergy/AdvReac Type Severity Reaction Status Date / Time No Known Allergies Allergy Verified 07/23/18 22:32 Review of Systems ROS Statement: Those systems with pertinent positive or pertinent negative responses have been documented in the HPI. ROS Other: All systems not noted in ROS Statement are negative. Past Medical History Past Medical History: Cancer, Hypertension, Neurologic Disorder, Thyroid Disorder Additional Past Medical History / Comment(s): brain cancer History of Any Multi-Drug Resistant Organisms: None Reported Past Surgical History: Adenoidectomy, Section, Cholecystectomy, Tonsillectomy Additional Past Surgical History / Comment(s): brain surgery, d and c Past Anesthesia/Blood Transfusion Reactions: No Reported Reaction Past Psychological History: Anxiety, Depression Smoking Status: Current every day smoker Past Alcohol Use History: None Reported Past Drug Use History: None Reported General Exam Limitations: no limitations General appearance: alert, in no apparent distress, other (This is a well- developed, well-nourished adult female patient in no acute distress. Vital signs upon presentation are temperature 98.8F, pulse 46, respirations 17, blood pressure 138/63, pulse ox 98% on room air.) Eye exam: Present: normal appearance, PERRL, EOMI. Absent: scleral icterus, conjunctival injection, nystagmus, periorbital swelling ENT exam: Present: normal exam, normal oropharynx, mucous membranes moist, TM's normal bilaterally Neck exam: Present: normal inspection. Absent: tenderness, meningismus, lymphadenopathy Respiratory exam: Present: normal lung sounds bilaterally. Absent: respiratory distress, wheezes, rales, rhonchi, stridor Cardiovascular Exam: Present: regular rate, normal rhythm, normal heart sounds. Absent: systolic murmur, diastolic murmur, rubs, gallop, clicks GI/Abdominal exam: Present: soft, normal bowel sounds. Absent: distended, tenderness, guarding, rebound, rigid Neurological exam: Present: alert, oriented X3, CN II-XII intact Psychiatric exam: Present: normal affect, normal mood Skin exam: Present: warm, dry, intact, normal color, rash (Flat erythematous macules noted to the lower abdomen, left anterior thigh, and right medial thigh. Lesions are shiny. ) Course Vital Signs 07/23/18 07/24/18 22:03 01:29 Temperature 98.8 F 98.6 F Pulse Rate 46 L 45 L Respiratory 17 18 Rate Blood Pressure 138/63 144/70 O2 Sat by Pulse 98 98 Oximetry Medical Decision Making - Medical Decision Making 48-year-old female patient presented to the emergency department today for complaints of frontal headache with right eye pressure. Physical examination was relatively unremarkable. Patient is neurologically intact. While in the department patient did have heart rate in the 40s. We did obtain EKG which did show sinus bradycardia with a ventricular rate of 42. Did discuss this with patient, she is unaware of ever having a pulse this low. Labs reviewed and are unremarkable. Patient was able to ambulate to the restroom without difficulty. CT of the brain was performed and showed no acute abnormalities. Patient will be discharged home at this time to follow-up with her primary care physician. She does have an MRI of the brain scheduled for July 28, she is urged to keep this appointment. She is instructed to follow-up with cardiology for further evaluation of her low heart rate. Return parameters were discussed in detail. She verbalizes understanding and agrees with this plan. - Lab Data Result diagrams: 07/23/18 22:40 07/23/18 22:40 Lab Results 07/23/18 07/23/18 07/23/18 Range/Units 22:40 22:40 22:40 WBC 6.6 (3.8-10.6) k/uL RBC 5.12 (3.80-5.40) m/uL Hgb 14.9 (11.4-16.0) gm/dL Hct 45.2 (34.0-46.0) % MCV 88.3 (80.0-100.0) fL MCH 29.2 (25.0-35.0) pg MCHC 33.0 (31.0-37.0) g/dL RDW 15.0 (11.5-15.5) % Plt Count 297 (150-450) k/uL Neutrophils % 67 % Lymphocytes % 24 % Monocytes % 6 % Eosinophils % 1 % Basophils % 1 % Neutrophils # 4.4 (1.3-7.7) k/uL Lymphocytes # 1.6 (1.0-4.8) k/uL Monocytes # 0.4 (0-1.0) k/uL Eosinophils # 0.1 (0-0.7) k/uL Basophils # 0.0 (0-0.2) k/uL Sodium 142 (137-145) mmol/L Potassium 3.7 (3.5-5.1) mmol/L Chloride 113 H (98-107) mmol/L Carbon Dioxide 22 (22-30) mmol/L Anion Gap 7 mmol/L BUN 12 (7-17) mg/dL Creatinine 0.97 (0.52-1.04) mg/dL Est GFR (CKD-EPI)AfAm 80 (>60 ml/min/1.73 sqM) Est GFR (CKD-EPI)NonAf 69 (>60 ml/min/1.73 sqM) Glucose 93 (74-99) mg/dL Calcium 8.9 (8.4-10.2) mg/dL Magnesium 2.1 (1.6-2.3) mg/dL Total Bilirubin 0.5 (0.2-1.3) mg/dL AST 19 (14-36) U/L ALT 28 (9-52) U/L Alkaline Phosphatase 120 (38-126) U/L Total Creatine Kinase 51 (30-135) U/L CK-MB (CK-2) 0.8 (0.0-2.4) ng/mL CK-MB (CK-2) Rel Index 1.6 Troponin I <0.012 (0.000-0.034) ng/mL Total Protein 6.6 (6.3-8.2) g/dL Albumin 3.5 (3.5-5.0) g/dL - Radiology Data Radiology results: report reviewed, image reviewed CT brain without contrast was performed. There is right frontal craniotomy defect. There is a large area of hypodensity involving the right frontal lobe consistent with encephalomalacia. There is mild hypodensity left frontal lobe white matter. There is no midline shift. There is no sign of intracranial hemorrhage. There is some cerebral atrophy. Impression by Dr. Nair shows old encephalomalacia right frontal lobe. No acute intracranial abnormality. No change. Disposition Clinical Impression: Headache, Bradycardia Disposition: HOME SELF-CARE Condition: Good Instructions: Acute Headache (ED), Bradycardia (ED) Additional Instructions: Follow-up with your primary care physician for recheck as soon as possible. Follow-up with cardiology for further evaluation of a low heart rate. Call hospital tomorrow morning to see what time your MRI is scheduled on 07/28/2018. Return here immediately for any new, worsening, or concerning symptoms. Is patient prescribed a controlled substance at d/c from ED?: No Referrals: Carlo Kirby DO [Primary Care Provider] - 1-2 days [place] MD [STAFF PHYSICIAN] - 1-2 days Time of Disposition: 01:12
[2018-07-23 22:52] LABS: Basophils % (A) 1 %; Eosinophils # (A) 0.1 k/uL (0-0.7); Eosinophils % (A) 1 %; HCT 45.2 % (34.0-46.0); HGB 14.9 gm/dL (11.4-16.0); Lymphocytes # (A) 1.6 k/uL (1.0-4.8); Lymphocytes % (A) 24 %; MCH 29.2 pg (25.0-35.0); MCV 88.3 fL (80.0-100.0); Mean Platelet Volume 6.9; Monocytes # (A) 0.4 k/uL (0-1.0); Monocytes % (A) 6 %; Neutrophils # (A) 4.4 k/uL (1.3-7.7); Neutrophils % (A) 67 %; Platelet Count 297 k/uL (150-450); RBC 5.12 m/uL (3.80-5.40); WBC 6.6 k/uL (3.8-10.6)
[2018-07-23 23:05] LABS: Albumin 3.5 g/dL (3.5-5.0); Calcium 8.9 mg/dL (8.4-10.2); Magnesium 2.1 mg/dL (1.6-2.3); Potassium 3.7 mmol/L (3.5-5.1); Total Bilirubin 0.5 mg/dL (0.2-1.3); Total Protein 6.6 g/dL (6.3-8.2)
--- NOTE | 2018-07-23 23:12 | CT ---
EXAMINATION TYPE: CT brain wo con DATE OF EXAM: 07/23/2018 COMPARISON: 05/12/2017 HISTORY: Head pressure. CT DLP: 1147 mGycm. Automated Exposure Control for Dose Reduction was Utilized. TECHNIQUE: CT scan of the head is performed without contrast. FINDINGS: There is right frontal craniotomy defect. There is large area of hypodensity involving the right frontal lobe consistent with encephalomalacia. There is mild hypodensity left frontal lobe whit e matter. There is no midline shift. There is no sign of intracranial hemorrhage. There is some cereb ral atrophy. IMPRESSION: Old encephalomalacia right frontal lobe. No acute intracranial abnormality. No change.
[2018-07-23 23:15] LABS: Creatine Kinase 51 U/L (30-135)
[2018-07-23 23:28] LABS: Creatine Kinase MB 0.8 ng/mL (0.0-2.4); Troponin I <0.012 ng/mL (0.000-0.034)
[2018-07-24 01:37] VITALS: BP 144/70; PULSE 45; RESP 18; TEMP 98.6
== END 2018-07-24 01:30 | disposition home or self-care (01) ==
LOC: EC 21:58
DX: R51 Headache (principal); R00.1 Bradycardia, unspecified; R42 Dizziness and giddiness; R53.1 Weakness; L53.8 Other specified erythematous conditions; I10 Essential (primary) hypertension; E03.9 Hypothyroidism, unspecified; F32.9 Major depressive disorder, single episode, unspecified; F41.9 Anxiety disorder, unspecified; F17.200 Nicotine dependence, unspecified, uncomplicated; Z85.841 Personal history of malignant neoplasm of brain; Z79.899 Other long term (current) drug therapy; Z98.890 Other specified postprocedural states
CPT/HCPCS: 36415; 93005; 80053; 82550; 82553; 83735; 84484; 85025; 70450; 99284; 96374; 96375 ×2; 96361; J1200; J2765; J1885

== ENCOUNTER 2018-08-01 19:42 | Emergency (ER) | payer OTHER ==
[2018-08-01] MEDS ORDERED: IPRATROPIUM-ALBUTEROL 3 ML NEB INHALATION STA (20:46)
[2018-08-01] MEDS ORDERED: traZODone HCL 50 MG TAB PO STA (20:47)
--- NOTE | 2018-08-01 20:48 | ED ---
General Adult HPI - General Chief complaint: Dizziness Stated complaint: weakness Time Seen by Provider: 08/01/18 19:57 Source: patient, RN notes reviewed Mode of arrival: EMS Limitations: no limitations - History of Present Illness Initial comments: This is a 48-year-old female coming the ER today for evaluation of inability to sleep. Patient states she hasn't been unable to sleep secondary running out of her trazodone. Here for medication refill. Patient also complains of mild cough with history of COPD. No chest pain or shortness of breath no headache no significant medical complaints MD Complaint: Insomnia, med refill -: days(s) (2) Improves with: medication Associated Symptoms: denies other symptoms - Related Data Home Medications Medication Instructions Recorded Confirmed Desvenlafaxine Succinate [Pristiq 50 mg PO DAILY 05/12/17 08/01/18 ER] Ergocalciferol (Vitamin D2) 50,000 unit PO Q7D 05/12/17 08/01/18 [Vitamin D2] HYDROcodone/APAP 10-325MG [[place] 1 tab PO Q8H PRN 05/12/17 08/01/18 10-325] Pantoprazole [Protonix] 40 mg PO DAILY 05/12/17 08/01/18 Pravastatin Sodium [Pravachol] 20 mg PO DAILY 05/12/17 08/01/18 Topiramate [Topamax] 50 mg PO BID 05/12/17 08/01/18 Oxybutynin ER [Ditropan Xl] 15 mg PO DAILY 07/10/18 08/01/18 traZODone HCL 50 mg PO HS 07/10/18 08/01/18 Levothyroxine Sodium 125 mcg PO DAILY 07/23/18 08/01/18 Loperamide HCl [Loperamide] 2 - 4 mg PO DAILY PRN 07/23/18 08/01/18 Magnesium Oxide [Mag-Ox] 250 mg PO BID 07/23/18 08/01/18 Previous Rx's Medication Instructions Recorded Nystatin 100,000 Unit/gm Powd 1 applic TOPICAL BID applic 12/20/17 [Mycostatin Powder] traZODone HCL [Desyrel] 50 mg PO HS #30 tab 08/01/18 Allergies Allergy/AdvReac Type Severity Reaction Status Date / Time No Known Allergies Allergy Verified 08/01/18 20:11 Review of Systems ROS Statement: Those systems with pertinent positive or pertinent negative responses have been documented in the HPI. ROS Other: All systems not noted in ROS Statement are negative. Past Medical History Past Medical History: Cancer, Hypertension, Neurologic Disorder, Thyroid Disorder Additional Past Medical History / Comment(s): brain cancer. bradycardia. History of Any Multi-Drug Resistant Organisms: None Reported Past Surgical History: Adenoidectomy, Section, Cholecystectomy, Tonsillectomy Additional Past Surgical History / Comment(s): brain surgery, d and c Past Anesthesia/Blood Transfusion Reactions: No Reported Reaction Past Psychological History: Anxiety, Depression Smoking Status: Current every day smoker Past Alcohol Use History: None Reported Past Drug Use History: None Reported General Exam Limitations: no limitations General appearance: alert, in no apparent distress Head exam: Present: atraumatic, normocephalic, normal inspection Eye exam: Present: normal appearance, PERRL, EOMI. Absent: scleral icterus, conjunctival injection, periorbital swelling ENT exam: Present: normal exam, mucous membranes moist Neck exam: Present: normal inspection. Absent: tenderness, meningismus, lymphadenopathy Respiratory exam: Present: normal lung sounds bilaterally. Absent: respiratory distress, wheezes, rales, rhonchi, stridor Cardiovascular Exam: Present: regular rate, normal rhythm, normal heart sounds. Absent: systolic murmur, diastolic murmur, rubs, gallop, clicks GI/Abdominal exam: Present: soft, normal bowel sounds. Absent: distended, tenderness, guarding, rebound, rigid Extremities exam: Present: normal inspection, full ROM, normal capillary refill. Absent: tenderness, pedal edema, joint swelling, calf tenderness Back exam: Present: normal inspection Neurological exam: Present: alert, oriented X3, CN II-XII intact Psychiatric exam: Present: normal affect, normal mood Skin exam: Present: warm, dry, intact, normal color. Absent: rash Course Vital Signs 08/01/18 19:47 Temperature 98.3 F Pulse Rate 50 L Respiratory 16 Rate Blood Pressure 137/76 O2 Sat by Pulse 98 Oximetry - Reevaluation(s) Reevaluation #1: 08/01/18 20:50 Medical records thoroughly reviewed Reevaluation #2: 08/01/18 20:50 Patient is in no distress normal vital signs Medical Decision Making - Medical Decision Making Plan I female the ER for evaluation and sound with running out of medication, trazodone she takes at night, patient given prescription refill. Patient can be discharged home Disposition Clinical Impression: COPD (chronic obstructive pulmonary disease), Medication refill Disposition: HOME SELF-CARE Condition: Good Instructions: Trazodone (By mouth) Prescriptions: traZODone HCL [Desyrel] 50 mg PO HS #30 tab Is patient prescribed a controlled substance at d/c from ED?: No Referrals: Carlo Kirby DO [Primary Care Provider] - 1-2 days
[2018-08-01 21:30] VITALS: PULSE 54
[2018-08-01 21:50] VITALS: BP 124/79; RESP 18; TEMP 97.9
== END 2018-08-01 21:49 | disposition home or self-care (01) ==
LOC: EC 19:42
DX: J44.9 Chronic obstructive pulmonary disease, unspecified (principal); Z76.0 Encounter for issue of repeat prescription; I10 Essential (primary) hypertension; E07.9 Disorder of thyroid, unspecified; F32.9 Major depressive disorder, single episode, unspecified; F41.9 Anxiety disorder, unspecified; F17.200 Nicotine dependence, unspecified, uncomplicated; Z85.841 Personal history of malignant neoplasm of brain; Z79.899 Other long term (current) drug therapy
CPT/HCPCS: 94640; 99284

== ENCOUNTER 2019-08-14 13:16 | Emergency (ER) | payer OTHER ==
[2019-08-14 13:40] VITALS: TEMP 97.9
[2019-08-14] MEDS ORDERED: IPRATROPIUM-ALBUTEROL 3 ML NEB INHALATION STA (14:01)
--- NOTE | 2019-08-14 14:01 | ED ---
SOB HPI - General Chief Complaint: Shortness of Breath Stated Complaint: BIRDIE Time Seen by Provider: 08/14/19 13:35 Source: patient Mode of arrival: ambulatory Limitations: no limitations - History of Present Illness Initial Comments: The patient is a 49-year-old female past medical history of COPD presents emergency room with reported shortness of breath. She states that her symptoms have been present over the past day. She reports a mild nonproductive cough. No history of fevers or chills. No hemoptysis. Denies history of DVT or PE. No recent travel or prolonged immobility. No recent surgery. Does not take any exogenous hormone. States that she will occasionally have lower extremity swelling however it has been mild at this time. No history of congestive heart failure. She does have an inhaler at home that she's been using without improvement in her symptoms. Denies calf pain or swelling however states that she will have occasional charley horses in her feet and thighs. This has been going on for the past month. She has seen Dr. Kirby. He placed her on Neurontin and ropinirole. States that this hasn't been helping her symptoms. She denies any chest pain. No ripping or tearing sensation to her back. She denies any changes in her bowel or bladder habits. Patient does report to occasional headaches. She has a history of brain mass with removal. Reports that she does have a mild headache at this time. She did have a headache which was much more severe which brought her into the emergency department several w eeks ago. She had a CT at that time which was negative. No history of seizures. There are no other alleviating, precipitating or modifying factors - Related Data Home Medications Medication Instructions Recorded Confirmed Desvenlafaxine Succinate [Pristiq 50 mg PO DAILY 05/12/17 08/14/19 ER] HYDROcodone/APAP 10-325MG [[place] 1 tab PO Q8H PRN 05/12/17 08/14/19 10-325] Levothyroxine Sodium 125 mcg PO DAILY 07/23/18 08/14/19 Loperamide HCl [Loperamide] 2 - 4 mg PO DAILY PRN 07/23/18 08/14/19 Gabapentin [Neurontin] 100 mg PO TID 08/14/19 08/14/19 Ibuprofen [Motrin] 800 mg PO TID 08/14/19 08/14/19 rOPINIRole HCL [Requip] 0.25 mg PO HS 08/14/19 08/14/19 Allergies Allergy/AdvReac Type Severity Reaction Status Date / Time No Known Allergies Allergy Verified 08/14/19 15:26 Review of Systems ROS Statement: Those systems with pertinent positive or pertinent negative responses have been documented in the HPI. ROS Other: All systems not noted in ROS Statement are negative. Past Medical History Past Medical History: Cancer, Hypertension, Neurologic Disorder, Thyroid Disorder Additional Past Medical History / Comment(s): brain cancer. bradycardia. History of Any Multi-Drug Resistant Organisms: None Reported Past Surgical History: Adenoidectomy, Section, Cholecystectomy, Tonsillectomy Additional Past Surgical History / Comment(s): brain surgery, d and c Past Anesthesia/Blood Transfusion Reactions: No Reported Reaction Past Psychological History: Anxiety, Depression Smoking Status: Current every day smoker Past Alcohol Use History: None Reported Past Drug Use History: None Reported General Exam Limitations: no limitations General appearance: alert, in no apparent distress Head exam: Present: atraumatic, normocephalic, normal inspection Eye exam: Present: normal appearance, PERRL, EOMI. Absent: scleral icterus, conjunctival injection, periorbital swelling ENT exam: Present: normal exam, mucous membranes moist Neck exam: Present: normal inspection. Absent: tenderness, meningismus, lymphadenopathy Respiratory exam: Present: normal lung sounds bilaterally. Absent: respiratory distress, wheezes, rales, rhonchi, stridor Cardiovascular Exam: Present: regular rate, normal rhythm, normal heart sounds. Absent: systolic murmur, diastolic murmur, rubs, gallop, clicks GI/Abdominal exam: Present: soft, normal bowel sounds. Absent: distended, tenderness, guarding, rebound, rigid Extremities exam: Present: normal inspection, full ROM, normal capillary refill. Absent: tenderness, pedal edema, joint swelling, calf tenderness Back exam: Present: normal inspection Neurological exam: Present: alert, oriented X3, CN II-XII intact Psychiatric exam: Present: normal affect, normal mood Skin exam: Present: warm, dry, intact, normal color. Absent: rash Course Vital Signs 08/14/19 08/14/19 08/14/19 13:32 14:57 15:07 Temperature 97.9 F Pulse Rate 60 60 60 Respiratory 18 Rate Blood Pressure 117/81 O2 Sat by Pulse 99 Oximetry 08/14/19 15:44 Temperature Pulse Rate 76 Respiratory 16 Rate Blood Pressure 119/76 O2 Sat by Pulse 100 Oximetry Medical Decision Making - Medical Decision Making Upon arrival the patient is placed into room 2. Thorough history and physical exam was performed. The patient is satting 100% without supplemental oxygen. Her lungs are clear. No calf pain or swelling. I did recommend laboratory studies up with the counseling 0.9, hemoglobin 16.1. D-dimer is negative at 0.21. Troponin is negative. BNP is 35. Chest x-ray is performed which does demonstrate chronic changes and mild cardiomegaly without acute pulmonary process. I discussed these results with the patient. She states she feels much improved at I did provide her with a DuoNeb breathing treatment. I also gave her 650 mg of Tylenol for her headache. At this time the patient will be discharged home. She has to follow-up with Dr. Kirby in regards to her current medication regimen possible changes that are needed. I do not placed the patient on the steroids at this time as her lungs are clear and she is satting 100%. She should continue to use her albuterol inhaler. Return to the emergency room for new or worsening symptoms. Patient was in agreement treatment plan she was discharged home in stable condition - Lab Data Result diagrams: 08/14/19 14:22 08/14/19 14:22 Lab Results 08/14/19 08/14/19 08/14/19 Range/Units 14:22 14:22 14:22 WBC 7.9 (3.8-10.6) k/uL RBC 5.22 (3.80-5.40) m/uL Hgb 16.1 H (11.4-16.0) gm/dL Hct 47.3 H (34.0-46.0) % MCV 90.6 (80.0-100.0) fL MCH 30.8 (25.0-35.0) pg MCHC 34.0 (31.0-37.0) g/dL RDW 13.8 (11.5-15.5) % Plt Count 395 (150-450) k/uL Neutrophils % 68 % Lymphocytes % 24 % Monocytes % 4 % Eosinophils % 2 % Basophils % 1 % Neutrophils # 5.4 (1.3-7.7) k/uL Lymphocytes # 1.9 (1.0-4.8) k/uL Monocytes # 0.3 (0-1.0) k/uL Eosinophils # 0.1 (0-0.7) k/uL Basophils # 0.1 (0-0.2) k/uL PT 9.8 (9.0-12.0) sec INR 0.9 (<1.2) APTT 26.9 (22.0-30.0) sec D-Dimer 0.21 (<0.60) mg/L FEU Sodium 142 (137-145) mmol/L Potassium 4.7 (3.5-5.1) mmol/L Chloride 108 H (98-107) mmol/L Carbon Dioxide 26 (22-30) mmol/L Anion Gap 8 mmol/L BUN 16 (7-17) mg/dL Creatinine 0.75 (0.52-1.04) mg/dL Est GFR (CKD-EPI)AfAm >90 (>60 ml/min/1.73 sqM) Est GFR (CKD-EPI)NonAf >90 (>60 ml/min/1.73 sqM) Glucose 92 (74-99) mg/dL Calcium 9.4 (8.4-10.2) mg/dL Magnesium 2.3 (1.6-2.3) mg/dL Total Bilirubin 0.5 (0.2-1.3) mg/dL AST 27 (14-36) U/L ALT 32 (9-52) U/L Alkaline Phosphatase 123 (38-126) U/L Troponin I (0.000-0.034) ng/mL NT-Pro-B Natriuret Pep pg/mL Total Protein 7.9 (6.3-8.2) g/dL Albumin 4.4 (3.5-5.0) g/dL 08/14/19 08/14/19 Range/Units 14:22 14:22 WBC (3.8-10.6) k/uL RBC (3.80-5.40) m/uL Hgb (11.4-16.0) gm/dL Hct (34.0-46.0) % MCV (80.0-100.0) fL MCH (25.0-35.0) pg MCHC (31.0-37.0) g/dL RDW (11.5-15.5) % Plt Count (150-450) k/uL Neutrophils % % Lymphocytes % % Monocytes % % Eosinophils % % Basophils % % Neutrophils # (1.3-7.7) k/uL Lymphocytes # (1.0-4.8) k/uL Monocytes # (0-1.0) k/uL Eosinophils # (0-0.7) k/uL Basophils # (0-0.2) k/uL PT (9.0-12.0) sec INR (<1.2) APTT (22.0-30.0) sec D-Dimer (<0.60) mg/L FEU Sodium (137-145) mmol/L Potassium (3.5-5.1) mmol/L Chloride (98-107) mmol/L Carbon Dioxide (22-30) mmol/L Anion Gap mmol/L BUN (7-17) mg/dL Creatinine (0.52-1.04) mg/dL Est GFR (CKD-EPI)AfAm (>60 ml/min/1.73 sqM) Est GFR (CKD-EPI)NonAf (>60 ml/min/1.73 sqM) Glucose (74-99) mg/dL Calcium (8.4-10.2) mg/dL Magnesium (1.6-2.3) mg/dL Total Bilirubin (0.2-1.3) mg/dL AST (14-36) U/L ALT (9-52) U/L Alkaline Phosphatase (38-126) U/L Troponin I <0.012 (0.000-0.034) ng/mL NT-Pro-B Natriuret Pep 35 pg/mL Total Protein (6.3-8.2) g/dL Albumin (3.5-5.0) g/dL - EKG Data EKG Comments: EKG demonstrates normal sinus rhythm with a ventricular rate of 60. AK interval 142. QRS 102. QTC 420. There are no acute ST segment elevations or depressions concerning for ischemic changes. Disposition Clinical Impression: COPD (chronic obstructive pulmonary disease) Disposition: HOME SELF-CARE Condition: Stable Instructions (If sedation given, give patient instructions): Dyspnea (ED) Additional Instructions: Please follow-up with Dr. Kirby regarding medication changes for your neuropathy. You should also follow-up with a neurologist regarding your chronic migraines. Return to the emergency room for any new or worsening symptoms Is patient prescribed a controlled substance at d/c from ED?: No Referrals: Carlo Kirby DO [Primary Care Provider] - 1-2 days Time of Disposition: 16:36
[2019-08-14 14:39] LABS: Basophils # (A) 0.1 k/uL (0-0.2); Basophils % (A) 1 %; Eosinophils # (A) 0.1 k/uL (0-0.7); Eosinophils % (A) 2 %; HCT 47.3 % (34.0-46.0); HGB 16.1 gm/dL (11.4-16.0); Lymphocytes # (A) 1.9 k/uL (1.0-4.8); Lymphocytes % (A) 24 %; MCH 30.8 pg (25.0-35.0); MCV 90.6 fL (80.0-100.0); Monocytes # (A) 0.3 k/uL (0-1.0); Monocytes % (A) 4 %; Neutrophils # (A) 5.4 k/uL (1.3-7.7); Neutrophils % (A) 68 %; Platelet Count 395 k/uL (150-450); RBC 5.22 m/uL (3.80-5.40); RDW 13.8 % (11.5-15.5); WBC 7.9 k/uL (3.8-10.6)
[2019-08-14 14:57] LABS: ALT 32 U/L (9-52); AST 27 U/L (14-36); African American GFR (CKD) >90 (>60 ml/min/1.73 sqM); Albumin 4.4 g/dL (3.5-5.0); Alkaline Phosphatase 123 U/L (38-126); Anion Gap 8 mmol/L; Blood Urea Nitrogen 16 mg/dL (7-17); Calcium 9.4 mg/dL (8.4-10.2); Carbon Dioxide 26 mmol/L (22-30); Chloride 108 mmol/L (98-107); D-Dimer 0.21 mg/L FEU (<0.60); Glucose 92 mg/dL (74-99); INR 0.9 (<1.2); Magnesium 2.3 mg/dL (1.6-2.3); Partial Thromboplastin Time 26.9 sec (22.0-30.0); Potassium 4.7 mmol/L (3.5-5.1); Prothrombin Time 9.8 sec (9.0-12.0); Sodium 142 mmol/L (137-145); Total Bilirubin 0.5 mg/dL (0.2-1.3); Total Protein 7.9 g/dL (6.3-8.2)
--- NOTE | 2019-08-14 15:07 | XR ---
EXAMINATION TYPE: XR chest 2V DATE OF EXAM: 08/14/2019 COMPARISON: Chest x-ray May 25, 2018. HISTORY: Headache and shortness of breath with exertion. TECHNIQUE: Frontal and lateral views of the chest are obtained. FINDINGS: There is chronic parenchymal changes bilaterally without suspicious new focal air space op acity, pleural effusion, or pneumothorax seen. The cardiac silhouette size is mildly enlarged. Curvi linear radiodensities device over the posterior mid lung on lateral view does not reproduce on fronta l view within lung montalvo presumed external. The osseous structures are intact. IMPRESSION: Chronic changes and mild cardiomegaly without acute pulmonary process.
[2019-08-14 15:45] VITALS: BP 119/76; PULSE 76; RESP 16
[2019-08-14] MEDS ORDERED: ACETAMINOPHEN TAB 325 MG TAB PO STA (16:34)
== END 2019-08-14 16:54 | disposition home or self-care (01) ==
LOC: EC 13:16
DX: J44.9 Chronic obstructive pulmonary disease, unspecified (principal); R51 Headache; I11.9 Hypertensive heart disease without heart failure; E07.9 Disorder of thyroid, unspecified; F32.9 Major depressive disorder, single episode, unspecified; F41.9 Anxiety disorder, unspecified; F17.200 Nicotine dependence, unspecified, uncomplicated; Z79.1 Long term (current) use of non-steroidal anti-inflammatories (NSAID); Z79.890 Hormone replacement therapy; Z79.899 Other long term (current) drug therapy; Z85.841 Personal history of malignant neoplasm of brain; Z90.89 Acquired absence of other organs; Z98.890 Other specified postprocedural states
CPT/HCPCS: 36415; 71046; 80053; 83735; 83880; 84484; 85025; 85379; 85610; 85730; 93005; 94640; 99285

== ENCOUNTER → 2020-08-02 | Outpatient (CLI) | payer OTHER ==
[2020-08-02 19:29] LABS: Appearance,Urine Cloudy (Clear); Bilirubin,Urine Negative (Negative); Blood,Urine Trace (Negative); Color,Urine Yellow; Glucose,Urine (UA) Negative (Negative); Ketones,Urine Negative (Negative); Leukocyte Esterase,Urine Large (Negative); Mucus,Urine Rare /hpf; Nitrite,Urine Negative (Negative); PH, Urine 6.5 (5.0-8.0); Protein,Urine Trace (Negative); RBC,Urine 7 /hpf (0-5); Squamous Epithelial Cell,Urine 4 /hpf (0-4); Urobilinogen,Urine <2.0 mg/dL (<2.0); WBC,Urine 29 /hpf (0-5)
== END | disposition home or self-care (01) ==
LOC: LABMEDISNF 18:03 → LABPRL 18:03 → EDSTATUS 18:06
PROVIDERS: ATTEND Family Medicine
DX: C71.9 Malignant neoplasm of brain, unspecified (principal); R32 Unspecified urinary incontinence
CPT/HCPCS: 81001; 87086

== ENCOUNTER → 2021-03-09 | Outpatient (CLI) | payer OTHER ==
--- NOTE | 2021-03-13 09:12 | MM ---
Reason for exam: screening (asymptomatic). Last mammogram was performed 6 years and 2 months ago. History: Patient has history of other cancer at age 44. Physical Findings: A clinical breast exam by your physician is recommended on an annual basis and results should be correlated with mammographic findings. MG Screening Mammo w CAD Bilateral CC, MLO, and XCCL view(s) were taken. Prior study comparison: January 13, 2015, left breast MG work up mamm w CAD LT. January 11, 2015, bilateral MG screening mammo w CAD. The breast tissue is heterogeneously dense. This may lower the sensitivity of mammography. Focal asymmetry upper outer left breast stable since 2015. No significant changes when compared with prior studies. ASSESSMENT: Benign, BI-RAD 2 RECOMMENDATION: Routine screening mammogram of both breasts in 1 year.
== END | disposition home or self-care (01) ==
LOC: RADMAMWWP 10:26
PROVIDERS: ATTEND Family Medicine
DX: Z12.31 Encounter for screening mammogram for malignant neoplasm of breast (principal)
CPT/HCPCS: 77067

== ENCOUNTER → 2021-08-10 | Outpatient (CLI) | payer OTHER ==
--- NOTE | 2021-08-10 12:57 | CT ---
EXAMINATION TYPE: CT brain w con DATE OF EXAM: 08/10/2021 COMPARISON: 07/23/18 HISTORY: headache, history of brain cancer CT DLP: 1072.3mGycm CONTRAST: CT scan of the head is performed with IV Contrast, patient injected with 100 mL of Isovue 300. Unenhanced followed by contrast enhanced CT of the brain is submitted for evaluation. The ventricles are midline. Right frontal craniotomy changes. Large area of encephalomalacia right frontal lobe. M oderate ventricular enlargement. There is no evidence for intracranial hemorrhage. No mass effects ar e identified. Contrast is administered and no enhancing lesions are detected. No pathologic enhance ment is identified. If symptoms persist consider MRI. IMPRESSION: No enhancing lesion identified. Large area of encephalomalacia and craniotomy change righ t frontal lobe.
== END | disposition home or self-care (01) ==
LOC: RADCTMAIN 11:11
PROVIDERS: ATTEND Family Medicine
DX: C71.9 Malignant neoplasm of brain, unspecified (principal); G93.89 Other specified disorders of brain
CPT/HCPCS: 82565; 84520; 70460; 36415; Q9967

== ENCOUNTER 2024-03-26 12:51 | Emergency (ER) | payer OTHER ==
--- NOTE | 2024-03-26 13:03 | ED ---
Psych HPI - General Stated Complaint: Psych Time Seen by Provider: 03/26/24 13:02 Source: RN notes reviewed, old records reviewed, Caregiver Mode of arrival: EMS Limitations: no limitations - History of Present Illness Initial Comments: This is a 53-year-old female to the ER for psychiatric evaluation and treatment, patient comes from [facility] for psychiatric evaluation and treatment with long chronic medical history and psychiatric MD Complaint: suicidal ideation, feels depressed -: unknown Associated Psychiatric Symptoms: depression, suicidal ideation, homicidal ideation, racing thoughts, auditory hallucinations History of same: Yes Quality: constant Improves With: none Worsens With: none Context: not taking psychiatric medications Associated Symptoms: shortness of breath Treatments Prior to Arrival: placed on mental health hold If Self Harm: admits thoughts of self harm - Related Data Home Medications Medication Instructions Recorded Confirmed Desvenlafaxine Succinate [Pristiq 50 mg PO DAILY 05/12/17 03/26/24 ER] HYDROcodone/APAP 10-325MG [[place] 1 tab PO TID 05/12/17 03/26/24 10-325] Levothyroxine Sodium 125 mcg PO HS 07/23/18 03/26/24 Loperamide HCl [Loperamide] 2 mg PO Q4H PRN 07/23/18 03/26/24 rOPINIRole HCL [Requip] 0.25 mg PO DAILY 08/14/19 03/26/24 Acetaminophen Tab [Tylenol] 650 mg PO Q6H PRN 03/26/24 03/26/24 Albuterol Sulfate [Ventolin HFA] 2 puff INHALATION RT-Q6H PRN 03/26/24 03/26/24 Desvenlafaxine [Pristiq ER] 100 mg PO DAILY 03/26/24 03/26/24 Dicyclomine [Bentyl] 20 mg PO QID 03/26/24 03/26/24 Docusate [Colace] 100 mg PO BID 03/26/24 03/26/24 Ergocalciferol [Vitamin D2 (1250 1,250 mcg PO Q30D 03/26/24 03/26/24 Mcg = 30167 Iu)] Famotidine [Pepcid] 20 mg PO BID 03/26/24 03/26/24 Fenofibrate,Micronized 200 mg PO DAILY 03/26/24 03/26/24 [Fenofibrate] Gabapentin 300 mg PO TID@0800,1200,1800 03/26/24 03/26/24 Latanoprost [Latanoprost 0.005%] 1 drop BOTH EYES HS 03/26/24 03/26/24 Magnesium Hydroxide [Milk of 2,400 mg PO DAILY PRN 03/26/24 03/26/24 Magnesia] Magnesium Oxide [Mag-Ox] 400 mg PO Q2D 03/26/24 03/26/24 Melatonin 10 mg PO HS PRN 03/26/24 03/26/24 Multivitamins, Thera [Multivitamin 1 tab PO DAILY 03/26/24 03/26/24 (formulary)] Naloxone HCl [Narcan] 4 mg NASAL DIRECTED PRN 03/26/24 03/26/24 Pravastatin Sodium [Pravachol] 20 mg PO HS 03/26/24 03/26/24 Topiramate [Topamax] 200 mg PO BID 03/26/24 03/26/24 Vibegron [Gemtesa] 75 mg PO DAILY 03/26/24 03/26/24 metFORMIN HCL [Glucophage] 500 mg PO BID@0800,1600 03/26/24 03/26/24 traZODone HCL [Desyrel] 50 mg PO HS 03/26/24 03/26/24 Allergies Allergy/AdvReac Type Severity Reaction Status Date / Time No Known Allergies Allergy Verified 03/26/24 15:09 Review of Systems ROS Statement: Those systems with pertinent positive or pertinent negative responses have been documented in the HPI. ROS Other: All systems not noted in ROS Statement are negative. Past Medical History Past Medical History: Cancer, Hypertension, Neurologic Disorder, Thyroid Disorder Additional Past Medical History / Comment(s): brain cancer. bradycardia. History of Any Multi-Drug Resistant Organisms: None Reported Past Surgical History: Adenoidectomy, Section, Cholecystectomy, Tonsil lectomy Additional Past Surgical History / Comment(s): brain surgery, d and c Past Anesthesia/Blood Transfusion Reactions: No Reported Reaction Past Psychological History: Anxiety, Depression Past Alcohol Use History: None Reported Past Drug Use History: None Reported General Exam General appearance: alert, in no apparent distress Head exam: Present: atraumatic, normocephalic, normal inspection Eye exam: Present: normal appearance, PERRL, EOMI. Absent: scleral icterus, conjunctival injection, periorbital swelling ENT exam: Present: normal exam, mucous membranes moist Neck exam: Present: normal inspection. Absent: tenderness, meningismus, lymphadenopathy Respiratory exam: Present: normal lung sounds bilaterally. Absent: respiratory distress, wheezes, rales, rhonchi, stridor Cardiovascular Exam: Present: regular rate, normal rhythm, normal heart sounds. Absent: systolic murmur, diastolic murmur, rubs, gallop, clicks GI/Abdominal exam: Present: soft, normal bowel sounds. Absent: distended, tenderness, guarding, rebound, rigid Extremities exam: Present: normal inspection, full ROM, normal capillary refill. Absent: tenderness, pedal edema, joint swelling, calf tenderness Back exam: Present: normal inspection Neurological exam: Present: alert, oriented X3, CN II-XII intact Psychiatric exam: Present: normal affect, normal mood Skin exam: Present: warm, dry, intact, normal color. Absent: rash Course Vital Signs 03/26/24 03/27/24 03/27/24 12:57 06:40 20:07 Temperature 98.9 F 98.5 F Pulse Rate 54 L 55 L 60 Respiratory 20 16 18 Rate Blood Pressure 114/68 120/72 135/89 O2 Sat by Pulse 95 96 979 H Oximetry 03/28/24 05:30 Temperature Pulse Rate 68 Respiratory 20 Rate Blood Pressure 138/70 O2 Sat by Pulse 98 Oximetry - Reevaluation(s) Reevaluation #1: 03/26/24 19:00 Records reviewed Reevaluation #2: 03/26/24 19:00 Unchanged 03/26/24 19:01 Cleared for psychiatric evaluation Reevaluation #3: Was pt. sent in by a medical professional or institution (, PA, DRUG SAFETY DATA MANAGEMENT SPECIALIST, urgent care, hospital, or senior living...) When possible be specific @ -no Did you speak to anyone other than the patient for history (EMS, parent, family, police, friend...)? What history was obtained from this source @ -no Did you review nursing and triage notes (agree or disagree)? Why? @ -agree Are old charts reviewed (outside hosp., previous admission, EMS record, old EKG, old radiological studies, urgent care reports/EKG's, senior living records)? Report findings @ -yes Differential Diagnosis (chest pain, altered mental status, abdominal pain women, abdominal pain men, vaginal bleeding, weakness, fever, dyspnea, syncope, headache, dizziness, GI bleed, back pain, seizure, CVA, palpatations, mental health, musculoskeletal)? @ -prior EKG interpreted by me (3pts min.). @ -no X-rays interpreted by me (1pt min.). @ -no CT interpreted by me (1pt min.). @ -no U/S interpreted by me (1pt. min.). @ -no What testing was considered but not performed or refused? (CT, X-rays, U/S, labs)? Why? @ -none What meds were considered but not given or refused? Why? @ -none Did you discuss the management of the patient with other professionals ( professionals i.e. , PA, DRUG SAFETY DATA MANAGEMENT SPECIALIST, lab, RT, psych nurse, social media assistant, retail link analyst, teacher, chief digital media officer, human services case manager)? Give summary @ -no Was smoking cessation discussed for >3mins.? @ -no Was critical care preformed (if so, how long)? @ -no Were there social determinants of health that impacted care today? How? (Homelessness, low income, unemployed, alcoholism, drug addiction, transportation, low edu. Level, literacy, decrease access to med. care, correction, rehab)? @ -none Was there de-escalation of care discussed even if they declined (Discuss DNR or withdrawal of care, Hospice)? DNR status @ -no What co-morbidities impacted this encounter? (DM, HTN, Smoking, COPD, CAD, Cancer, CVA, ARF, Chemo, Hep., AIDS, mental health diagnosis, sleep apnea, morbid obesity)? @ -none Was patient admitted / discharged? Hospital course, mention meds given and route, prescriptions, significant lab abnormalities, going to OR and other pertinent info. @ -53 female seen eval by psychiatry here in the ER patient can be discharged home Undiagnosed new problem with uncertain prognosis? @ -no Drug Therapy requiring intensive monitoring for toxicity (Heparin, Nitro, Insulin, Cardizem)? @ -no Were any procedures done? @ -no Diagnosis/symptom? @ -Psychiatric illness Acute, or Chronic, or Acute on Chronic? @ -Acute Uncomplicated (without systemic symptoms) or Complicated (systemic symptoms)? @ -Complicated Side effects of treatment? @ -no Exacerbation, Progression, or Severe Exacerbation? @ -exacerbation Poses a threat to life or bodily function? How? (Chest pain, USA, NC, pneumonia, PE, COPD, DKA, ARF, appy, cholecystitis, CVA, Diverticulitis, Homicidal, Suicidal, threat to staff... and all critical care pts) @ -yes Reevaluation #4: Differential Mental Health Depression, anxiety, bipolar, psychosis, schizophrenia, borderline personality, situational depression, adjustment disorder, behavioral disorder, brain tumor, malingering, substance abuse, encephalopathy, medication reaction, dementia, hypothyroidism, degenerative neurologic disorder, lupus.... This is not meant to be all-inclusive list Medical Decision Making - Medical Decision Making 53 Female be transferred for inpatient psychiatric evaluation and treatment - Lab Data Result diagrams: 03/27/24 05:15 03/27/24 05:15 Lab Results 03/27/24 03/27/24 03/27/24 Range/Units 05:15 05:15 05:15 WBC 6.8 (3.8-10.6) k/uL RBC 4.53 (3.80-5.40) m/uL Hgb 14.0 (11.4-16.0) gm/dL Hct 43.5 (34.0-46.0) % MCV 96.1 (80.0-100.0) fL MCH 30.9 (25.0-35.0) pg MCHC 32.1 (31.0-37.0) g/dL RDW 12.8 (11.5-15.5) % Plt Count 339 (150-450) k/uL MPV 7.4 Neutrophils % 62 % Lymphocytes % 29 % Monocytes % 5 % Eosinophils % 2 % Basophils % 1 % Neutrophils # 4.2 (1.3-7.7) k/uL Lymphocytes # 2.0 (1.0-4.8) k/uL Monocytes # 0.4 (0-1.0) k/uL Eosinophils # 0.1 (0-0.7) k/uL Basophils # 0.0 (0-0.2) k/uL Sodium 139 (137-145) mmol/L Potassium 3.7 (3.5-5.1) mmol/L Chloride 113 H (98-107) mmol/L Carbon Dioxide 20 L (22-30) mmol/L Anion Gap 6 mmol/L BUN 22 H (7-17) mg/dL Creatinine 1.02 (0.52-1.04) mg/dL Est GFR (CKD-EPI)AfAm 72 (>60 ml/min/1.73 sqM) Est GFR (CKD-EPI)NonAf 63 (>60 ml/min/1.73 sqM) Glucose 132 H (74-99) mg/dL Calcium 9.0 (8.4-10.2) mg/dL Total Bilirubin 0.4 (0.2-1.3) mg/dL AST 23 (14-36) U/L ALT 25 (4-34) U/L Alkaline Phosphatase 47 (38-126) U/L Total Protein 6.1 L (6.3-8.2) g/dL Albumin 3.6 (3.5-5.0) g/dL Urine Color Urine Appearance (Clear) Urine pH (5.0-8.0) Ur Specific [place] (1.001-1.035) Urine Protein (Negative) Urine Glucose (UA) (Negative) Urine Ketones (Negative) Urine Blood (Negative) Urine Nitrite (Negative) Urine Bilirubin (Negative) Urine Urobilinogen (<2.0) mg/dL Ur Leukocyte Esterase (Negative) Urine RBC (0-5) /hpf Urine WBC (0-5) /hpf Ur Squamous Epith Cells (0-4) /hpf Urine Bacteria (None) /hpf Urine Mucus (None) /hpf Urine Opiates Screen (NotDetected) Ur Oxycodone Screen (NotDetected) Urine Methadone Screen (NotDetected) Ur Barbiturates Screen (NotDetected) U Tricyclic Antidepress (NotDetected) Ur Phencyclidine Scrn (NotDetected) Ur Amphetamines Screen (NotDetected) U Methamphetamines Scrn (NotDetected) U Benzodiazepines Scrn (NotDetected) Urine Cocaine Screen (NotDetected) U Marijuana (THC) Screen (NotDetected) Influenza Type A (PCR) Not Detected (Not Detectd) Influenza Type B (PCR) Not Detected (Not Detectd) RSV (PCR) Not Detected (Not Detectd) SARS-CoV-2 (PCR) Not Detected (Not Detectd) 03/27/24 Range/Units 10:44 WBC (3.8-10.6) k/uL RBC (3.80-5.40) m/uL Hgb (11.4-16.0) gm/dL Hct (34.0-46.0) % MCV (80.0-100.0) fL MCH (25.0-35.0) pg MCHC (31.0-37.0) g/dL RDW (11.5-15.5) % Plt Count (150-450) k/uL MPV Neutrophils % % Lymphocytes % % Monocytes % % Eosinophils % % Basophils % % Neutrophils # (1.3-7.7) k/uL Lymphocytes # (1.0-4.8) k/uL Monocytes # (0-1.0) k/uL Eosinophils # (0-0.7) k/uL Basophils # (0-0.2) k/uL Sodium (137-145) mmol/L Potassium (3.5-5.1) mmol/L Chloride (98-107) mmol/L Carbon Dioxide (22-30) mmol/L Anion Gap mmol/L BUN (7-17) mg/dL Creatinine (0.52-1.04) mg/dL Est GFR (CKD-EPI)AfAm (>60 ml/min/1.73 sqM) Est GFR (CKD-EPI)NonAf (>60 ml/min/1.73 sqM) Glucose (74-99) mg/dL Calcium (8.4-10.2) mg/dL Total Bilirubin (0.2-1.3) mg/dL AST (14-36) U/L ALT (4-34) U/L Alkaline Phosphatase (38-126) U/L Total Protein (6.3-8.2) g/dL Albumin (3.5-5.0) g/dL Urine Color Colorless Urine Appearance Cloudy H (Clear) Urine pH 6.0 (5.0-8.0) Ur Specific [place] 1.010 (1.001-1.035) Urine Protein Negative (Negative) Urine Glucose (UA) Negative (Negative) Urine Ketones Negative (Negative) Urine Blood Moderate H (Negative) Urine Nitrite Negative (Negative) Urine Bilirubin Negative (Negative) Urine Urobilinogen <2.0 (<2.0) mg/dL Ur Leukocyte Esterase Large H (Negative) Urine RBC 8 H (0-5) /hpf Urine WBC 27 H (0-5) /hpf Ur Squamous Epith Cells 4 (0-4) /hpf Urine Bacteria Rare H (None) /hpf Urine Mucus Occasional H (None) /hpf Urine Opiates Screen Detected H (NotDetected) Ur Oxycodone Screen Not Detected (NotDetected) Urine Methadone Screen Not Detected (NotDetected) Ur Barbiturates Screen Not Detected (NotDetected) U Tricyclic Antidepress Not Detected (NotDetected) Ur Phencyclidine Scrn Not Detected (NotDetected) Ur Amphetamines Screen Not Detected (NotDetected) U Methamphetamines Scrn Not Detected (NotDetected) U Benzodiazepines Scrn Not Detected (NotDetected) Urine Cocaine Screen Not Detected (NotDetected) U Marijuana (THC) Screen Not Detected (NotDetected) Influenza Type A (PCR) (Not Detectd) Influenza Type B (PCR) (Not Detectd) RSV (PCR) (Not Detectd) SARS-CoV-2 (PCR) (Not Detectd) - EKG Data -: EKG Interpreted by Me (EKG sinus 74 ND 230 QRS 106 QTc 419) Disposition Clinical Impression: Reactive airway disease, Depression, Acute anxiety, Suicidal ideation Disposition: TRANSFER TO PSYCH HOSP/UNIT Condition: Fair Is patient prescribed a controlled substance at d/c from ED?: No Referrals: Carlo Kirby DO [STAFF PHYSICIAN] - 1-2 days
[2024-03-27] MEDS: GABAPENTIN 300 MG CAP PO SCH (02:31)
[2024-03-27] MEDS: HYDROcodone/APAP 10-325MG 1 EACH TAB PO SCH (02:31)
[2024-03-27] MEDS: MELATONIN 5 MG TABLET PO SCH (02:51)
[2024-03-27] MEDS: traZODone HCL 50 MG TAB PO SCH (02:52)
[2024-03-27 05:29] LABS: Basophils % (A) 1 %; Eosinophils # (A) 0.1 k/uL (0-0.7); Eosinophils % (A) 2 %; HCT 43.5 % (34.0-46.0); Lymphocytes % (A) 29 %; MCH 30.9 pg (25.0-35.0); MCHC 32.1 g/dL (31.0-37.0); MCV 96.1 fL (80.0-100.0); Mean Platelet Volume 7.4; Monocytes # (A) 0.4 k/uL (0-1.0); Monocytes % (A) 5 %; Neutrophils # (A) 4.2 k/uL (1.3-7.7); Neutrophils % (A) 62 %; Platelet Count 339 k/uL (150-450); RBC 4.53 m/uL (3.80-5.40); RDW 12.8 % (11.5-15.5); WBC 6.8 k/uL (3.8-10.6)
[2024-03-27 05:39] LABS: ALT 25 U/L (4-34); AST 23 U/L (14-36); African American GFR (CKD) 72 (>60 ml/min/1.73 sqM); Albumin 3.6 g/dL (3.5-5.0); Alkaline Phosphatase 47 U/L (38-126); Anion Gap 6 mmol/L; Blood Urea Nitrogen 22 mg/dL (7-17); Carbon Dioxide 20 mmol/L (22-30); Chloride 113 mmol/L (98-107); Glucose 132 mg/dL (74-99); Non-African American GFR(CKD) 63 (>60 ml/min/1.73 sqM); Potassium 3.7 mmol/L (3.5-5.1); Sodium 139 mmol/L (137-145); Total Bilirubin 0.4 mg/dL (0.2-1.3); Total Protein 6.1 g/dL (6.3-8.2)
[2024-03-27 07:09] VITALS: TEMP 98.5
[2024-03-27 11:37] LABS: Appearance,Urine Cloudy (Clear); Bacteria,Urine Rare /hpf; Bilirubin,Urine Negative (Negative); Blood,Urine Moderate (Negative); Color,Urine Colorless; Glucose,Urine (UA) Negative (Negative); Ketones,Urine Negative (Negative); Leukocyte Esterase,Urine Large (Negative); Mucus,Urine Occasional /hpf; Nitrite,Urine Negative (Negative); Protein,Urine Negative (Negative); RBC,Urine 8 /hpf (0-5); Squamous Epithelial Cell,Urine 4 /hpf (0-4); Urobilinogen,Urine <2.0 mg/dL (<2.0); WBC,Urine 27 /hpf (0-5)
[2024-03-27 11:40] LABS: Amphetamine Screen,Urine Not Detected (NotDetected); Barbiturate Screen,Urine Not Detected (NotDetected); Benzodiazepines Screen,Urine Not Detected (NotDetected); Cocaine Screen,Urine Not Detected (NotDetected); Methadone Screen, Urine Not Detected (NotDetected); Opiate Screen,Urine Detected (NotDetected); Oxycodone Screen, Urine Not Detected (NotDetected); Phencyclidine Screen,Urine Not Detected (NotDetected); Tricyclic Antidepressant,Urine Not Detected (NotDetected); Urn Cannabinoid Scrn Not Detected (NotDetected)
--- NOTE | 2024-03-27 16:51 | CT ---
EXAMINATION TYPE: CT brain wo con CT DLP: 1095.4 mGycm, Automated exposure control for dose reduction was used. DATE OF EXAM: 03/27/2024 4:22 PM COMPARISON: 07/23/2018. CLINICAL INDICATION:Female, 53 years old with history of botello, TECHNIQUE: Brain: Axial CT images of the brain were obtained with coronal and sagittal reformats created and rev iewed. Contrast used: None. Oral contrast used: None. FINDINGS: Brain: Right frontal craniotomy defect and encephalomalacia in the right frontal lobe consistent with surgic al resection of tumor. Extra-axial spaces: No abnormal extra-axial fluid collections. Ventricular system: Within normal limits Cerebral parenchyma: No acute intraparenchymal hemorrhage or mass effect. The hackett-white junction is well differentiated. Cerebellum: Unremarkable. Mass effect: No evidence of midline shift. Intracranial vasculature: unremarkable Soft tissues: Normal. Calvarium/osseous structures: No depressed skull fracture. Paranasal sinuses and mastoid air cells: Mild scattered paranasal sinus disease. Visualized orbits: Orbital contents are intact. IMPRESSION: No acute intracranial process. Right frontal craniotomy defect and encephalomalacia in the right frontal lobe consistent with surgic al resection of tumor.
[2024-03-28 05:33] VITALS: BP 138/70; PULSE 68; RESP 20
== END 2024-03-28 05:30 ==
LOC: EC 12:51
DX: F32.A Depression, unspecified (principal); F41.9 Anxiety disorder, unspecified; J45.909 Unspecified asthma, uncomplicated; R45.851 Suicidal ideations; Z79.899 Other long term (current) drug therapy
CPT/HCPCS: 36415; 70450; 80053; 80306; 81001; 82075; 85025; 87636; 99285

== ENCOUNTER → 2024-05-07 | Outpatient (CLI) | payer OTHER ==
--- NOTE | 2024-05-07 14:02 | US ---
EXAMINATION TYPE: US carotid duplex BILAT DATE OF EXAM: 05/07/2024 COMPARISON: NONE CLINICAL INDICATION: Female, 54 years old with history of R20.0 ANESTHESIA OF SKIN; TECHNIQUE: Carotid duplex ultrasound examination. Indirect Doppler criteria was utilized. FINDINGS: EXAM MEASUREMENTS: RIGHT: Peak Systolic Velocity (PSV) cm/sec ----- Right CCA: 76.2 ----- Right ICA: 55.2 ----- Right ECA: 76.0 ICA/CCA ratio: 0.82 RIGHT: End Diastole cm/sec ----- Right CCA: 7.38 ----- Right ICA: 12.3 ----- Right ECA: LEFT: Peak Systolic Velocity (PSV) cm/sec ----- Left CCA: 90.7 ----- Left ICA: 87.1 ----- Left ECA: 175.0 ICA/CCA ratio: 1.25 LEFT: End Diastole cm/sec ----- Left CCA: 20.2 ----- Left ICA: 46.3 ----- Left ECA: 21.0 VERTEBRALS (direction of flow): Right Vertebral: Antegrade Left Vertebral: Antegrade Rhythm: Arrhythmia EMU FARMER NOTES: No significant stenosis seen IMPRESSION: 1. Atheromatous plaquing without flow-limiting stenosis internal carotid artery origins. 2. There may be some moderate narrowing of left external carotid artery based on velocities. Criteria for Assigning % of Stenosis / Diameter reduction (Estimation based on the indirect measurements of the internal carotid artery velocities (ICA PSV). 1. Normal (no stenosis)=ICA PSV < 125 cm/s: ratio < 2.0: ICA EDV<40 cm/s. 2. Less than 50% stenosis=ICA PSV < 125 cm/s: ratio < 2.0: ICA EDV<40 cm/s. 3. 50 to 69% stenosis=ICA PSV of 125 to 230 cm/s: ration 2.0 ? 4.0: ICA EDV 40-100 cm/s. 4. Greater than 70% stenosis to near occlusion= ICA PSV > 230 cm/s: ratio > 4.0: ICA EDV > 100 cm/s. 5. Near occlusion= ICA PSV velocities may be low or undetectable: variable ratio and ICA EDV. 6. Total occlusion=unable to detect flow.
== END | disposition home or self-care (01) ==
LOC: RADUSWWP 13:11
PROVIDERS: ATTEND Psychiatry & Neurology Neurology
DX: I70.90 Unspecified atherosclerosis (principal); G43.009 Migraine without aura, not intractable, without status migrainosus; R20.0 Anesthesia of skin; Z85.841 Personal history of malignant neoplasm of brain
CPT/HCPCS: 93880

== ENCOUNTER → 2024-05-18 | Outpatient (CLI) | payer OTHER ==
--- NOTE | 2024-05-18 16:31 | MR ---
EXAMINATION TYPE: MR brain wo/w con DATE OF EXAM: 05/18/2024 10:29 AM CLINICAL INDICATION:Female, 54 years old with history of R20.0,Z85.841,G43.009 MIGRAINE W/O AURA, NOT INTRA; PHH, Prior on PACS, headache, dizziness, facial numbness, history of brain CA with surgical r emoval COMPARISON: 06/12/2022 TECHNIQUE: Multi planar, multi sequence imaging was performed through the brain including: T1, T2, In version recovery, susceptibility weighted imaging and gradient echo imaging and Diffusion weighted im aging. The patient was then given intravenous contrast and multi planar, T1 fat-saturation images wer e obtained. IV Contrast: 13 cc Gadavist FINDINGS: Postsurgical changes right frontal lobe with encephalomalacia and surrounding high FLAIR si gnal. Postcontrast imaging shows no evidence for enhancing mass. The susceptibility/hemosiderin depos ition along the surgical bed. Right frontal lobe developmental venous anomaly. No evidence of restric sully diffusion diffusion-weighted imaging to suggest acute/subacute stroke. The bone marrow signal is within normal limits. Paranasal sinuses and mastoid air cells: No significant paranasal sinus disease. Visualized orbits: Bilaterally aphakia.v IMPRESSION: Postsurgical changes to the right frontal lobe with surrounding white matter change. No evidence for acute/subacute CVA. No abnormal postcontrast enhancement.
== END | disposition home or self-care (01) ==
LOC: RADMRIMAIN 09:35
PROVIDERS: ATTEND Psychiatry & Neurology Neurology
DX: G43.009 Migraine without aura, not intractable, without status migrainosus (principal); R20.0 Anesthesia of skin; Z85.841 Personal history of malignant neoplasm of brain
CPT/HCPCS: 70553; A9585